=== PATIENT | male | born 1955 | race American Indian/Alaskan Native ===

== ENCOUNTER 2017-06-20 22:56 | Inpatient (IN) | payer OTHER ==
[2017-06-20] MEDS ORDERED: GLUCAGEN IV ONE (23:38)
[2017-06-20] MEDS ORDERED: NACL 0.9% 1000 ML 1,000 ML IV ONE (23:38)
[2017-06-20] MEDS ORDERED: ZOFRAN IV ONE (23:39)
--- NOTE | 2017-06-20 23:43 | Emergency Department Report ---
HPI - General Chief Complaint: Dyspnea/Respdistress Time Seen by Provider: 06/20/17 23:38 - HPI HPI: 61-year-old -[place] male presents to the ED with inability to swallow. Patient states 2 days ago he accidentally swallowed a large piece of chicken which got stuck in his throat. Since then patient has been unable to swallow anything, even saliva. Patient cannot drink water as it gets stuck in his throat and come back up, patient has been unable to eat for the past 2 days. Patient states his cough and nausea has been getting worse to the point where he vomits every hour or so. Patient has additional medical history of pancreatitis, high blood pressure and states that is compliant with medication. Patient also describes sharp pain in his throat, with no alleviating factors. ED Past Medical Hx - Past Medical History Previous Medical History?: Yes Hx Hypertension: Yes Additional medical history: pancreatitis - Family History Family history: hypertension - Social History Smoking Status: Never Smoker - Medications Home Medications: Home Medications Medication Instructions Recorded Confirmed Last Taken Type Amlodipine Besylate [Norvasc] 5 mg PO DAILY 06/21/17 06/21/17 Unknown History Ibuprofen [Motrin] 800 mg PO TIDWM 06/21/17 06/21/17 Unknown History Losartan [Cozaar] 50 mg PO QDAY 06/21/17 06/21/17 Unknown History Metoprolol [Lopressor TAB] 50 mg PO BID 06/21/17 06/21/17 Unknown History Pantoprazole [Protonix] 40 mg PO QDAC 06/21/17 06/21/17 Unknown History ED Review of Systems ROS: Stated complaint: VALERIO/THROAT SWELLING/POSS REACTION Other details as noted in HPI Comment: All other systems reviewed and negative Constitutional: malaise ENT: throat pain Cardiovascular: as per HPI Gastrointestinal: nausea, vomiting Physical Exam - Physical Exam Vital Signs: Vital Signs 06/20/17 23:04 Temperature 98.1 F Pulse Rate 110 H Respiratory 24 Rate Blood Pressure 162/101 O2 Sat by Pulse 98 Oximetry Physical Exam: - Physical Exam - General Limitations: No Limitations General appearance: alert, in no apparent distress, obese - Head Head exam: Present: atraumatic, normocephalic - Eye Eye exam: Present: normal appearance - ENT ENT exam: Present: mucous membranes moist - Neck Neck exam: Present: normal inspection - Respiratory Respiratory exam: Present: normal lung sounds bilaterally. Absent: respiratory distress - Cardiovascular Cardiovascular Exam: Present: normal rhythm, tachycardia. Absent: systolic murmur, diastolic murmur, rubs, gallop - GI/Abdominal GI/Abdominal exam: Present: soft, normal bowel sounds - Extremities Exam Extremities exam: Present: normal inspection - Back Exam Back exam: Present: normal inspection - Neurological Exam Neurological exam: Present: alert, oriented X3 - Psychiatric Psychiatric exam: normal affect and mood - Skin Skin exam: Present: warm, dry, intact, normal color. Absent: rash ED Course Vital Signs 06/20/17 23:04 Temperature 98.1 F Pulse Rate 110 H Respiratory 24 Rate Blood Pressure 162/101 O2 Sat by Pulse 98 Oximetry - Reevaluation(s) Reevaluation #1: 06/20/17 23:55 GI was consulted and i spoke with Dr. Jain, who stated he will come to ER, at 5 in the morning to remove the foreign body. 06/21/17 02:04 ED Medical Decision Making - Lab Data Result diagrams: 06/23/17 05:33 06/21/17 00:00 Critical care attestation.: If time is entered above; I have spent that time in minutes in the direct care of this critically ill patient, excluding procedure time. ED Disposition Clinical Impression: Foreign body in esophagus Qualifiers: Encounter type: initial encounter Qualified Code(s): T18.108A - Unspecified foreign body in esophagus causing other injury, initial encounter Disposition: OP ADMIT IP TO THIS HOSP Is pt being admited?: Yes Does the pt Need Aspirin: No Condition: Stable
[2017-06-20] MEDS ORDERED: MORPHINE IV ONE (23:55)
[2017-06-21 00:23] LABS: Basophils % (Auto) 0.2 % (0.0-1.8); Hemoglobin 15.6 gm/dl (11.8-15.2); Mean Corpuscular HGB Conc 33 % (32-34); Mean Corpuscular Hemoglobin 34 pg (28-32); Mean Corpuscular Volume 103 fl (84-94); Platelet Count 252 K/mm3 (140-440); Red Blood Count 4.55 M/mm3 (3.65-5.03); Red Cell Distribution Width 12.8 % (13.2-15.2); White Blood Count 19.4 K/mm3 (4.5-11.0)
[2017-06-21 00:31] LABS: Alanine Aminotransferase 49 units/L (7-56); Albumin 4.5 g/dL (3.9-5); Albumin/Globulin Ratio 0.9 %; Alkaline Phosphatase 79 units/L (35-129); Anion Gap 23 mmol/L; Blood Urea Nitrogen 15 mg/dL (9-20); Calcium 10.5 mg/dL (8.4-10.2); Carbon Dioxide 23 mmol/L (22-30); Chloride 92.4 mmol/L (98-107); Glucose 162 mg/dL (75-100); Potassium 4.7 mmol/L (3.6-5.0); Sodium 134 mmol/L (137-145); Total Protein 9.4 g/dL (6.3-8.2)
[2017-06-21 00:32] LABS: INR 0.9 (0.87-1.13)
[2017-06-21 00:33] LABS: Partial Thromboplastin Time 32.4 Sec. (24.2-36.6)
[2017-06-21] MEDS ORDERED: PEPCID IV ONE (01:06)
[2017-06-21] MEDS ORDERED: REGLAN IV ONE ×2 (01:06→02:03)
[2017-06-21] MEDS ORDERED: MORPHINE IV ONE ×2 (01:07→05:51)
[2017-06-21] MEDS ORDERED: GLUCAGEN IV ONE (01:11)
--- NOTE | 2017-06-21 01:26 | XRay Report ---
FINAL REPORT PROCEDURE: XR NECK SOFT TISSUE TECHNIQUE: Soft tissue neck radiographs, 2 views, including AP and lateral. CPT 25087 HISTORY: Bone in throat COMPARISON: No prior studies are available for comparison. FINDINGS: Bone mineralization: There is significant spur formation off the anterior aspect the the cervical vertebral bodies from the C3 through the C5 vertebral levels. Alignment: Normal. Soft tissues: Epiglottis and hypopharyngeal soft tissues normal. Foreign bodies: None. IMPRESSION: The airway is patent. No radiopaque foreign object is noted.
[2017-06-21] MEDS ORDERED: NACL 0.9% 1000 ML 1,000 ML IV ONE (01:56)
[2017-06-21] MEDS ORDERED: SUBLIMAZE IV ONE (04:51)
[2017-06-21] MEDS ORDERED: ZOFRAN IV ONE (05:52)
[2017-06-21] MEDS ORDERED: NACL 0.9% 1000 ML 1,000 ML ONE (07:25)
[2017-06-21] MEDS ORDERED: VERSED IV ONE (07:27)
[2017-06-21] MEDS ORDERED: SUBLIMAZE ONE (07:28)
[2017-06-21] MEDS ORDERED: ATROVENT IH ONE (07:59)
[2017-06-21] MEDS ORDERED: PROVENTIL IH ONE ×2 (07:59→09:46)
--- NOTE | 2017-06-21 08:21 | Gastroenterology Consultation ---
History of Present Illness - Reason for Consult Consult date: 06/21/17 Meat impaction Requesting physician: STORMY LIN - History of Present Illness The patient is a 61 year old man for whom consultation was requested for a meat impaction. The patient reports swallowing a large piece of chicken with a bone 2 days ago and has been unable to swallow much since. He has a history of dysphagia and heartburn for several years although this has not been evaluated or treated to his knowledge. He had colon surgery about 2 years ago for a non malignant polyp. he has had a large ventral hernia develop post surgery. 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 Patient has a history of asthma which has flared in the past few days as well. Past History Past Medical History: COPD, hypertension Past Surgical History: bowel surgery Social history: Lives alone. denies: smoking, alcohol abuse Family history: no significant family history Medications and Allergies Allergies Allergy/AdvReac Type Severity Reaction Status Date / Time No Known Allergies Allergy Verified 04/24/16 01:11 Home Medications Medication Instructions Recorded Confirmed Last Taken Type Amlodipine Besylate [Norvasc] 5 mg PO DAILY 06/21/17 06/21/17 Unknown History Ibuprofen [Motrin] 800 mg PO TIDWM 06/21/17 06/21/17 Unknown History Losartan [Cozaar] 50 mg PO QDAY 06/21/17 06/21/17 Unknown History Metoprolol [Lopressor TAB] 50 mg PO BID 06/21/17 06/21/17 Unknown History Pantoprazole [Protonix] 40 mg PO QDAC 06/21/17 06/21/17 Unknown History Active Meds: Active Medications Sodium Chloride (Nacl 0.9% 1000 Ml) 1,000 mls @ 125 mls/hr IV ONCE ONE Stop: 06/21/17 09:55 Last Admin: 06/21/17 03:00 Dose: 125 mls/hr Review of Systems - Review of Systems Constitutional: no weight loss, no fever, no chills Eyes: no change in vision Ears, Nose, Throat: difficulty swallowing, no decreased hearing, no painful swallowing Breasts: deferred Cardiovascular: no chest pain, no edema, no rapid/irregular heart beat Respiratory: cough, shortness of breath, wheezing, no home oxygen Gastrointestinal: heartburn, no abdominal pain, no nausea, no vomiting, no constipation, no BRBPR, no melena Rectal: pain Male Genitourinary: deferred Musculoskeletal: no gait dysfunction, no joint pain, no muscle pain Integumentary: no deferred, no rash, no pruritis, no jaundice Neurological: no head injury, no paralysis, no weakness Psychiatric: no anxiety Endocrine: no cold intolerance, no heat intolerance Hematologic/Lymphatic: no easy bruising, no easy bleeding Allergic/Immunologic: no wheezing Exam - Constitutional Vital Signs: Temp Pulse Resp BP Pulse Ox 98.1 F 122 H 18 158/108 99 06/20/17 23:04 06/21/17 06:15 06/21/17 06:15 06/21/17 06:15 06/21/17 06:15 General appearance: mild distress, obese - EENT Eyes: PERRL ENT: hearing intact, clear oral mucosa, edentulous - Neck Neck: supple, normal ROM, no masses or JVD - Respiratory Respiratory: bilateral: CTA, wheezing - Breasts Breasts: deferred - Cardiovascular Rhythm: regular Heart Sounds: Present: S1 & S2. Absent: gallop, rub Extremities: pulses intact, No edema, normal color, Full ROM - Gastrointestinal General gastrointestinal: Present: soft, non-tender, normal bowel sounds, other (Obese, large ventral hernia). Absent: hepatomegaly, splenomegaly, mass Rectal Exam: deferred - Genitourinary Male Genitourinary: deferred - Integumentary Integumentary: Present: clear, warm, dry - Neurologic Neurological: alert and oriented x3 - Psychiatric Psychiatric: appropriate mood/affect, intact judgment & insight, memory intact - Labs CBC & Chem 7: 06/21/17 00:00 06/21/17 00:00 Lab Results: Laboratory Results - last 24 hr 06/21/17 06/21/17 06/21/17 00:00 00:00 00:00 WBC 19.4 H RBC 4.55 Hgb 15.6 H Hct 47.0 H MCV 103 H MCH 34 H MCHC 33 RDW 12.8 L Plt Count 252 Lymph % (Auto) 5.2 L Bradley % (Auto) 11.5 H Eos % (Auto) 0.0 Baso % (Auto) 0.2 Lymph # 1.0 L Bradley # 2.2 H Eos # 0.0 Baso # 0.0 Seg Neutrophils % 83.1 H Seg Neutrophils # 16.1 H PT 12.6 INR 0.90 APTT 32.4 Sodium 134 L Potassium 4.7 Chloride 92.4 L Carbon Dioxide 23 Anion Gap 23 BUN 15 Creatinine 1.2 Estimated GFR > 60 BUN/Creatinine Ratio 12.50 Glucose 162 H Calcium 10.5 H Total Bilirubin 0.90 AST 32 ALT 49 Alkaline Phosphatase 79 Total Protein 9.4 H Albumin 4.5 Albumin/Globulin Ratio 0.9 Assessment and Plan - Patient Problems (1) COPD (chronic obstructive pulmonary disease) Current Visit: Yes Status: Acute Qualifiers: COPD type: C Chronic bronchitis type: C Emphysema type: E (2) Morbid obesity Current Visit: Yes Status: Acute (3) Hypertension Current Visit: Yes Status: Acute Qualifiers: Hypertension type: H (4) Foreign body in esophagus Current Visit: Yes Status: Acute Qualifiers: Encounter type: initial encounter Qualified Code(s): T18.108A - Unspecified foreign body in esophagus causing other injury, initial encounter Plan to address problem: Chicken and probable bone impaction of the esophagus. He is higher risk for endoscopy due to wheezing, obesity and foreign body and will need intubation to protect airway. Respiratory treatment ordered. Anesthesia to see shortly per my discussion.
--- NOTE | 2017-06-21 08:41 | Anesthesia Consultation ---
Anesthesia Consult and Med Hx Date of service: 06/21/17 - Airway Anesthetic Teeth Evaluation: Good ROM Head & Neck: Adequate Mental/Hyoid Distance: Adequate Mallampati Class: Class III Intubation Access Assessment: Possibly Difficult - Pre-Operative Health Status ASA Pre-Surgery Classification: ASA2 Proposed Anesthetic Plan: General - Pulmonary Hx Smoking: No Hx Respiratory Symptoms: Yes (difficulty breathing) - Cardiovascular System Hx Hypertension: Yes - Gastrointestinal Hx Gastroesophageal Reflux Disease: Yes - Other Systems Hx Obesity: Yes (overweight)
--- NOTE | 2017-06-21 08:42 | Anesthesia Day of Surgery ---
Anesthesia Day of Surgery - Day of Surgery Patient Examined: Yes Patient H&P Reviewed: Yes Patient is NPO: Yes
[2017-06-21] MEDS ORDERED: DILAUDID ONE (08:49)
[2017-06-21] MEDS ORDERED: DIPRIVAN 10 MG/ML IV ONE ×2 (08:49→09:14)
[2017-06-21] MEDS ORDERED: DULCOLAX PR PRN (09:22)
--- NOTE | 2017-06-21 09:23 | Operative Report ---
Operative Report Operative Report: Date of procedure: 06/21/2017 Procedure: Esophagogastroduodenoscopy Preprocedure diagnosis: Suspected foreign body in the esophagus, meat impaction with total dysphagia. Post procedure diagnosis: Edematous hypopharynx and epiglottis. No foreign body identified. Mild peptic stricture. Normal stomach and duodenum. Endoscopist: Dr. Jain Anesthesia: Gen. endotracheal anesthesia Medications: Propofol per anesthesia. Decadron 12 mg IV per anesthesia. Estimated blood loss: 0 After careful discussion of the nature and purpose of the procedure as well as details the technique risks benefits and alternatives consent was obtained. The procedure was performed in the operating room. The patient was placed under propofol and intubated in advance by anesthesia to protect the airway. The tip of the [employer] EQ 570 video scope was passed per orum under direct vision into the esophagus and advanced into the stomach and descending duodenum. No food impaction was present in the esophagus. The descending duodenum the duodenal bulb and pylorus were symmetrical and normal. The scope was withdrawn into the stomach and the stomach then gently insufflated with air. The antrum was normal. The stomach was further insufflated and the scope was then retroflexed and partially withdrawn. The cardia, fundus, and body of the stomach were within normal limits and easily distensible.The scope was then withdrawn in the forward position. The esophagogastric junction was at [42 cm] . Mild peptic stricture is present provided no resistance to passage of the scope. The esophageal body was normal throughout. There was edema in the hypopharyngeal area and epiglottis. Careful inspection of the area revealed no definite foreign body or bone. The procedure was was well tolerated and the patient was observed in recovery. Impressions: [Edematous hypopharynx without definite foreign body or bone. No food impaction present in the esophagus. The optic stricture at the esophagogastric junction. Normal stomach and duodenum.] Plan: Evaluation by the hospitalist to admit the patient for control of his asthma. Advance diet as tolerated. Outpatient dilation of the peptic stricture. Electronically signed: Shaun Jain MD
[2017-06-21] MEDS ORDERED: ZOFRAN IM PRN (09:24)
[2017-06-21] MEDS ORDERED: PROVENTIL IH PRN (09:25)
--- NOTE | 2017-06-21 09:32 | History and Physical Report ---
History of Present Illness Date of examination: 06/21/17 Date of admission: 06/21/2017 Chief complaint: unable to swallow History of present illness: Patient is a 61 years-old black -[place] male with past medical histroy of COPD, hypertension and pancreatitis who presents to the emergency department with inability to swallow. Patient reports swallowing a large piece of chicken with a bone three days ago and has been unable to swallow much since then. Patient states he has been unable to eat or drink for the past 3 days. Patient has a history of dysphagia and heartburn for several years although this has not been evaluated or treated to his knowledge. He has experienced some nausea but has not vomited. He endorses shortness of breath, but denies chest pain or dizziness. Past History Past Medical History: COPD, hypertension, other (Pancreatitis ) Past Surgical History: bowel surgery Social history: Lives alone. denies: smoking, alcohol abuse Family history: no significant family history Medications and Allergies Allergies Allergy/AdvReac Type Severity Reaction Status Date / Time No Known Allergies Allergy Verified 04/24/16 01:11 Home Medications Medication Instructions Recorded Confirmed Last Taken Type Amlodipine Besylate [Norvasc] 5 mg PO DAILY 06/21/17 06/21/17 Unknown History Ibuprofen [Motrin] 800 mg PO TIDWM 06/21/17 06/21/17 Unknown History Losartan [Cozaar] 50 mg PO QDAY 06/21/17 06/21/17 Unknown History Metoprolol [Lopressor TAB] 50 mg PO BID 06/21/17 06/21/17 Unknown History Pantoprazole [Protonix] 40 mg PO QDAC 06/21/17 06/21/17 Unknown History Active Meds: Active Medications Acetaminophen (Tylenol) 650 mg PO Q4H PRN PRN Reason: Pain MILD(1-3)/Fever >100.5/ALTAMIRANO Albuterol (Proventil) 2.5 mg IH Q4HR PRN PRN Reason: Shortness Of Breath Albuterol/Ipratropium (Duoneb *Not For Prn Use*) 1 ampul IH Q6HRT ROLAND Bisacodyl (Dulcolax) 10 mg [place] QDAY PRN PRN Reason: Constipation unrelieved by MOM Sodium Chloride (Nacl 0.9% 1000 Ml) 1,000 mls @ 125 mls/hr IV ONCE ONE Stop: 06/21/17 09:55 Last Admin: 06/21/17 03:00 Dose: 125 mls/hr Losartan Potassium (Cozaar) 50 mg PO QDAY [facility] Metoprolol Tartrate (Lopressor) 50 mg PO BID [facility] Miscellaneous Medication (Amlodipine Besylate [Norvasc]) 5 mg PO DAILY [facility] Morphine Sulfate (Morphine) 2 mg IV Q4H PRN PRN Reason: Pain, Moderate (7-10) Ondansetron HCl (Zofran) 4 mg IM Q4H PRN PRN Reason: Nausea And Vomiting Pantoprazole Sodium (Protonix) 40 mg IV DAILY [facility] Review of Systems Constitutional: poor appetite, no weight loss, no weight gain, no fever Ears, nose, mouth and throat: no ear pain, no ear discharge, no tinnitis, no decreased hearing, no nose pain, no nasal congestion Cardiovascular: shortness of breath, dyspnea on exertion, no chest pain, no orthopnea, no palpitations, no rapid/irregular heart beat, no syncope, no lightheadedness Respiratory: cough, shortness of breath, dyspnea on exertion, wheezing, no cough with sputum, no excessive sputum, no hemoptysis Gastrointestinal: no nausea, no vomiting, no diarrhea, no constipation Genitourinary Male: no hematuria, no flank pain, no discharge, no urinary frequency, no urinary hesitancy, no nocturia, no incontinence, no erectile dysfunction Rectal: no incontinence, no bleeding Musculoskeletal: no neck pain, no arm numbness/tingling, no low back pain, no shooting leg pain Integumentary: no pruritis, no redness, no sores Neurological: no paralysis, no weakness, no parathesias, no numbness, no seizures, no syncope Psychiatric: no memory loss, no change in sleep habits, no sleep disturbances, no insomnia, no hypersomnia Endocrine: no cold intolerance, no heat intolerance, no polyphagia, no excessive thirst, no polydipsia, no polyuria Hematologic/Lymphatic: no easy bruising, no easy bleeding Allergic/Immunologic: no urticaria, no allergic rhinitis Exam - Constitutional Vitals: Temp Pulse Resp BP Pulse Ox 98.1 F 123 H 25 H 163/85 99 06/20/17 23:04 06/21/17 08:30 06/21/17 08:30 06/21/17 08:30 06/21/17 08:30 General appearance: Present: mild distress - EENT Eyes: Present: PERRL ENT: hearing intact - Neck Neck: Present: supple - Respiratory Respiratory effort: normal Respiratory: bilateral: wheezing (mild stridor) - Cardiovascular Rhythm: regular Heart Sounds: Present: S1 & S2 - Extremities Extremities: no ischemia - Abdominal General gastrointestinal: Present: soft, non-tender Male genitourinary: Present: deferred - Rectal Rectal Exam: deferred - Integumentary Integumentary: Present: clear, warm, dry - Musculoskeletal Musculoskeletal: strength equal bilaterally - Psychiatric Psychiatric: appropriate mood/affect - Neurologic Neurologic: CNII-XII intact - Allied Health Allied health notes reviewed: nursing Results - Labs CBC & Chem 7: 06/21/17 00:00 06/21/17 00:00 Labs: Laboratory Last Values WBC 19.4 K/mm3 (4.5-11.0) H 06/21/17 00:00 RBC 4.55 M/mm3 (3.65-5.03) 06/21/17 00:00 Hgb 15.6 gm/dl (11.8-15.2) H 06/21/17 00:00 Hct 47.0 % (35.5-45.6) H 06/21/17 00:00 MCV 103 fl (84-94) H 06/21/17 00:00 MCH 34 pg (28-32) H 06/21/17 00:00 MCHC 33 % (32-34) 06/21/17 00:00 RDW 12.8 % (13.2-15.2) L 06/21/17 00:00 Plt Count 252 K/mm3 (140-440) 06/21/17 00:00 Lymph % (Auto) 5.2 % (13.4-35.0) L 06/21/17 00:00 Swift % (Auto) 11.5 % (0.0-7.3) H 06/21/17 00:00 Eos % (Auto) 0.0 % (0.0-4.3) 06/21/17 00:00 Baso % (Auto) 0.2 % (0.0-1.8) 06/21/17 00:00 Lymph # 1.0 K/mm3 (1.2-5.4) L 06/21/17 00:00 Swift # 2.2 K/mm3 (0.0-0.8) H 06/21/17 00:00 Eos # 0.0 K/mm3 (0.0-0.4) 06/21/17 00:00 Baso # 0.0 K/mm3 (0.0-0.1) 06/21/17 00:00 Seg Neutrophils % 83.1 % (40.0-70.0) H 06/21/17 00:00 Seg Neutrophils # 16.1 K/mm3 (1.8-7.7) H 06/21/17 00:00 PT 12.6 Sec. (12.2-14.9) 06/21/17 00:00 INR 0.90 (0.87-1.13) 06/21/17 00:00 APTT 32.4 Sec. (24.2-36.6) 06/21/17 00:00 Sodium 134 mmol/L (137-145) L 06/21/17 00:00 Potassium 4.7 mmol/L (3.6-5.0) 06/21/17 00:00 Chloride 92.4 mmol/L (98-107) L 06/21/17 00:00 Carbon Dioxide 23 mmol/L (22-30) 06/21/17 00:00 Anion Gap 23 mmol/L 06/21/17 00:00 BUN 15 mg/dL (9-20) 06/21/17 00:00 Creatinine 1.2 mg/dL (0.8-1.5) 06/21/17 00:00 Estimated GFR > 60 ml/min 06/21/17 00:00 BUN/Creatinine Ratio 12.50 % 06/21/17 00:00 Glucose 162 mg/dL (75-100) H 06/21/17 00:00 Calcium 10.5 mg/dL (8.4-10.2) H 06/21/17 00:00 Total Bilirubin 0.90 mg/dL (0.1-1.2) 06/21/17 00:00 AST 32 units/L (5-40) 06/21/17 00:00 ALT 49 units/L (7-56) 06/21/17 00:00 Alkaline Phosphatase 79 units/L (35-129) 06/21/17 00:00 Total Protein 9.4 g/dL (6.3-8.2) H 06/21/17 00:00 Albumin 4.5 g/dL (3.9-5) 06/21/17 00:00 Albumin/Globulin Ratio 0.9 % 06/21/17 00:00 - Imaging and Cardiology Chest x-ray: image reviewed (The airway is patent. No radiopaque foreign object is noted.) Assessment and Plan Assessment and plan: Foreign body in throat Endoscopy revealed revealed no definite foreign body or bone, but shows edema to Hypopharyngeal and Epiglottis Started on IV steroid Oxygen supplement Supportive care COPD exacerbation Started on Duoneb every 6 hours Started on IV steroids Solumedrol 40mg every 6 hours Aggressive nebulizers Oxygen supplement Supportive care Hypertension IV Hydralazine 10 mg as necassary for now Hold PO medication, We will resume home PO antihypertensive medications when patient swallowing improved Closely monitor blood pressure DVT Propylaxis Lovenox Advance Directives: Yes (Full code) VTE prophylaxis?: Chemical Contraindication Mechanical VTE Prophylaxis: Treatment Not Indicated Plan of care discussed with patient/family: Yes
[2017-06-21] MEDS ORDERED: DECADRON ONE (09:45)
[2017-06-21] MEDS ORDERED: XYLOCAINE MPF 2% ONE (09:45)
[2017-06-21] MEDS ORDERED: QUELICIN ONE (09:45)
[2017-06-21] MEDS ORDERED: NORMODYNE IV PRN (10:02)
[2017-06-21] MEDS ORDERED: NORMODYNE IV ONE (10:12)
[2017-06-21] MEDS ORDERED: S2 RACEPINEPHRINE 2.25% IH ONE ×4 (10:45→19:10)
[2017-06-21] MEDS ORDERED: NACL 0.9% 1000 ML 1,000 ML IV SCH (11:00)
--- NOTE | 2017-06-21 11:16 | XRay Report ---
PORTABLE CHEST: Respiratory distress. An AP portable view of the chest demonstrates a normal cardiac contour considering the limits of this technique. The lungs are clear with no evidence of infiltrate, fluid or failure. IMPRESSION: Normal portable chest.
--- NOTE | 2017-06-21 11:35 | Post Anesthesia Evaluation ---
- Post Anesthesia Evaluation Patient Participated: Yes Airway Patent: Yes Stable Respiratory Function: Yes Nausea/Vomiting: No Temp > 96.8F: Yes Pain Manageable: Yes Adequeate Hydration: Yes Anesthesia Complications: No
[2017-06-21] MEDS: PROTONIX IV SCH (12:15)
[2017-06-21] MEDS: LOVENOX SUB-Q SCH (12:33)
[2017-06-21] MEDS: COZAAR PO SCH (12:35)
[2017-06-21] MEDS: NORVASC PO SCH (12:35)
[2017-06-21] MEDS: LOPRESSOR PO SCH ×2 (12:35→21:54)
[2017-06-21] MEDS ORDERED: APRESOLINE IV PRN (12:39)
[2017-06-21] MEDS: APRESOLINE IV PRN ×2 (13:02→21:52)
[2017-06-21] MEDS: DUONEB *Not for PRN Use IH SCH ×2 (13:26→21:32)
[2017-06-21] MEDS: MORPHINE IV PRN ×2 (18:16→21:51)
[2017-06-22] MEDS: DUONEB *Not for PRN Use IH SCH ×4 (02:58→20:12)
[2017-06-22] MEDS: APRESOLINE IV PRN ×3 (05:09→22:15)
[2017-06-22] MEDS: MORPHINE IV PRN ×3 (05:10→14:40)
--- NOTE | 2017-06-22 09:11 | Progress Note ---
Assessment and Plan Assessment and plan: Patient is a 61 years-old black -[place] male with past medical histroy of COPD, hypertension and pancreatitis who presents to the emergency department with inability to swallow. Patient reports swallowing a large piece of chicken with a bone three days ago and has been unable to swallow much since then. Patient states he has been unable to eat or drink for the past 3 days. Patient has a history of dysphagia and heartburn for several years although this has not been evaluated or treated to his knowledge. He has experienced some nausea but has not vomited. He endorses shortness of breath, but denies chest pain or dizziness. Foreign body in throat Endoscopy revealed revealed no definite foreign body or bone, but shows edema to Hypopharyngeal and Epiglottis Wean IV steroids as tolerated Oxygen supplement Supportive care Clear liquid and advance as tolerated Follow with GI ouptatient for dilation of the peptic stricture COPD exacerbation Started on Duoneb every 6 hours Taper to 40 BID IV Aggressive nebulizers Oxygen supplement Supportive care Hypertension WITH Tachycardia IV Hydralazine 10 mg as necassary for now We will resume home PO antihypertensive medications Closely monitor blood pressure DVT Propylaxis Lovenox Advance Directives: Yes (Full code) VTE prophylaxis?: Chemical Contraindication Mechanical VTE Prophylaxis: Treatment Not Indicated Plan of care discussed with patient/family: History Interval history: Patient seen and examined this morning going for GI procedure. Hospitalist Physical - Physical exam Narrative exam: VITAL SIGNS: Reviewed. GENERAL: The patient appeared well nourished and normally developed. Vital signs as documented. HEAD: No signs of head trauma. EYES: Pupils are equal. Extraocular motions intact. EARS: Hearing grossly intact. MOUTH: Oropharynx is normal. NECK: No adenopathy, no JVD. CHEST: Chest with crackles breath sounds bilaterally. CARDIAC: Regular rate and rhythm. S1 and S2, without murmurs, gallops, or rubs. VASCULAR: No Edema. Peripheral pulses normal and equal in all extremities. ABDOMEN: Soft, without detectable tenderness. No sign of distention. No rebound or guarding, and no masses palpated. Bowel Sounds normal. MUSCULOSKELETAL: Good range of motion of all major joints. Extremities without clubbing, cyanosis or edema. NEUROLOGIC EXAM: Alert and oriented x 3. Hoarse intonation, No focal sensory or strength deficits. Follows commands. PSYCHIATRIC: Mood normal. SKIN: No rash or lesions. - Constitutional Vitals: Temp Pulse Resp BP Pulse Ox 99.6 F 114 H 20 158/90 91 06/22/17 05:15 06/22/17 05:15 06/22/17 05:15 06/22/17 05:15 06/22/17 05:15 General appearance: Present: mild distress Results - Labs CBC & Chem 7: 06/23/17 05:33 06/21/17 00:00 Labs: Laboratory Last Values WBC 19.4 K/mm3 (4.5-11.0) H 06/21/17 00:00 RBC 4.55 M/mm3 (3.65-5.03) 06/21/17 00:00 Hgb 15.6 gm/dl (11.8-15.2) H 06/21/17 00:00 Hct 47.0 % (35.5-45.6) H 06/21/17 00:00 MCV 103 fl (84-94) H 06/21/17 00:00 MCH 34 pg (28-32) H 06/21/17 00:00 MCHC 33 % (32-34) 06/21/17 00:00 RDW 12.8 % (13.2-15.2) L 06/21/17 00:00 Plt Count 252 K/mm3 (140-440) 06/21/17 00:00 Lymph % (Auto) 5.2 % (13.4-35.0) L 06/21/17 00:00 [place] % (Auto) 11.5 % (0.0-7.3) H 06/21/17 00:00 Eos % (Auto) 0.0 % (0.0-4.3) 06/21/17 00:00 Baso % (Auto) 0.2 % (0.0-1.8) 06/21/17 00:00 Lymph # 1.0 K/mm3 (1.2-5.4) L 06/21/17 00:00 [place] # 2.2 K/mm3 (0.0-0.8) H 06/21/17 00:00 Eos # 0.0 K/mm3 (0.0-0.4) 06/21/17 00:00 Baso # 0.0 K/mm3 (0.0-0.1) 06/21/17 00:00 Seg Neutrophils % 83.1 % (40.0-70.0) H 06/21/17 00:00 Seg Neutrophils # 16.1 K/mm3 (1.8-7.7) H 06/21/17 00:00 PT 12.6 Sec. (12.2-14.9) 06/21/17 00:00 INR 0.90 (0.87-1.13) 06/21/17 00:00 APTT 32.4 Sec. (24.2-36.6) 06/21/17 00:00 Sodium 134 mmol/L (137-145) L 06/21/17 00:00 Potassium 4.7 mmol/L (3.6-5.0) 06/21/17 00:00 Chloride 92.4 mmol/L (98-107) L 06/21/17 00:00 Carbon Dioxide 23 mmol/L (22-30) 06/21/17 00:00 Anion Gap 23 mmol/L 06/21/17 00:00 BUN 15 mg/dL (9-20) 06/21/17 00:00 Creatinine 1.2 mg/dL (0.8-1.5) 06/21/17 00:00 Estimated GFR > 60 ml/min 06/21/17 00:00 BUN/Creatinine Ratio 12.50 % 06/21/17 00:00 Glucose 162 mg/dL (75-100) H 06/21/17 00:00 Calcium 10.5 mg/dL (8.4-10.2) H 06/21/17 00:00 Total Bilirubin 0.90 mg/dL (0.1-1.2) 06/21/17 00:00 AST 32 units/L (5-40) 06/21/17 00:00 ALT 49 units/L (7-56) 06/21/17 00:00 Alkaline Phosphatase 79 units/L (35-129) 06/21/17 00:00 Total Protein 9.4 g/dL (6.3-8.2) H 06/21/17 00:00 Albumin 4.5 g/dL (3.9-5) 06/21/17 00:00 Albumin/Globulin Ratio 0.9 % 06/21/17 00:00 - Imaging and Cardiology Imaging and Cardiology: xray of neck. negative.
[2017-06-22] MEDS: LEVAQUIN 750MG/150ML 750 MG/150 ML BAG IV SCH (09:57)
[2017-06-22] MEDS: LOVENOX SUB-Q SCH (09:58)
[2017-06-22] MEDS: PROTONIX IV SCH (11:40)
--- NOTE | 2017-06-22 11:42 | Gastroenterology Progress Note ---
<STEPHANY MIRAMONTES - Last Filed: 06/22/17 11:49> Assessment and Plan 1.foreign body in the esophagus 2. COPD- defer to hospitalist for treatment/management -S/P EGD yesterday that revealed edematous hypopharynx and epiglottis with mild peptic stricture but no foreign body -will order clear liquid diet, advance as tolerated -continue PPI and supportive care -pt will need an EGD with dilation as an outpatient within 1 month -no further GI recommendations at this time, pt is okay to be d/c from GI standpoint with a f/u appt in 2 weeks to schedule outpatient EGD -will sign off, please re-consult if needed or if pt has difficulty advancing diet Subjective Date of service: 06/22/17 Principal diagnosis: foreign body in the esophagus Interval history: Patient sitting in the bed. No acute distress. Seems agitated, states he is just thirsty. Denies pain or N/V. Objective - Constitutional Vitals: Temp Pulse Resp BP Pulse Ox 98.3 F 110 H 20 189/14 96 06/22/17 09:34 06/22/17 10:07 06/22/17 10:07 06/22/17 10:07 06/22/17 09:34 General appearance: no acute distress, obese - EENT Eyes: PERRL, EOM intact ENT: hearing intact - Neck Neck: supple, normal ROM - Respiratory Respiratory: bilateral: rhonchi (anterior) - Cardiovascular Rhythm: other (tachycardia) Heart Sounds: Present: S1 & S2 - Extremities Extremities: No edema - Gastrointestinal General gastrointestinal: Present: soft, non-tender, non-distended, normal bowel sounds, other (ventral hernia, midline scar) - Integumentary Integumentary: Present: warm - Neurologic Neurological: alert and oriented x3 - Labs CBC & Chem 7: 06/21/17 00:00 06/21/17 00:00 <AMIE IGNACIO - Last Filed: 06/22/17 16:23> Assessment and Plan Patient seen and examined. Agree with note by Stephany Miramontes. Recommend speech eval, and diet per recommendations. Consider ENT evaluation. Will need outpatient EGD as above. Will sign off, please call back as needed or with questions. Objective - Constitutional Vitals: Temp Pulse Resp BP Pulse Ox 98.6 F 115 H 20 155/90 95 06/22/17 12:45 06/22/17 13:42 06/22/17 13:42 06/22/17 12:45 06/22/17 14:02 - Labs CBC & Chem 7: 06/21/17 00:00 06/21/17 00:00
[2017-06-22] MEDS: NORVASC PO SCH (15:14)
[2017-06-22] MEDS: LOPRESSOR PO SCH ×2 (15:14→22:30)
[2017-06-22] MEDS: COZAAR PO SCH (15:14)
[2017-06-23] MEDS: MORPHINE IV PRN (02:06)
[2017-06-23] MEDS: DUONEB *Not for PRN Use IH SCH ×4 (02:34→21:00)
[2017-06-23 06:07] LABS: Hematocrit 44.1 % (35.5-45.6); Hemoglobin 14.6 gm/dl (11.8-15.2); Mean Corpuscular HGB Conc 33 % (32-34); Mean Corpuscular Hemoglobin 34 pg (28-32); Mean Corpuscular Volume 104 fl (84-94); Platelet Count 225 K/mm3 (140-440); Red Blood Count 4.26 M/mm3 (3.65-5.03); Red Cell Distribution Width 12.8 % (13.2-15.2); White Blood Count 13.2 K/mm3 (4.5-11.0)
--- NOTE | 2017-06-23 11:06 | Fluoroscopy Report ---
MODIFIED BARIUM SWALLOW History: dysphagia. Findings: Video radiography was provided by the radiologist for speech therapy to assess the swallowing mechanism. Please refer to the formal report by speech therapy. Impression: Successful modified barium swallow.
[2017-06-23] MEDS: COZAAR PO SCH (11:23)
[2017-06-23] MEDS: PROTONIX PO SCH (11:24)
[2017-06-23] MEDS: LOPRESSOR PO SCH (11:24)
[2017-06-23] MEDS: NORVASC PO SCH (11:24)
[2017-06-23] MEDS: LEVAQUIN 750MG/150ML 750 MG/150 ML BAG IV SCH (11:33)
[2017-06-23] MEDS: LOVENOX SUB-Q SCH (11:34)
[2017-06-23] MEDS: APRESOLINE IV PRN (11:38)
[2017-06-23] MEDS: D5NS 1,000 ML IV SCH (17:46)
--- NOTE | 2017-06-23 18:27 | Progress Note ---
Assessment and Plan Assessment and plan: Patient is a 61 years-old black -[place] male with past medical histroy of COPD, hypertension and pancreatitis who presents to the emergency department with inability to swallow. Patient reports swallowing a large piece of chicken with a bone three days ago and has been unable to swallow much since then. Patient states he has been unable to eat or drink for the past 3 days. Patient has a history of dysphagia and heartburn for several years although this has not been evaluated or treated to his knowledge. He has experienced some nausea but has not vomited. He endorses shortness of breath, but denies chest pain or dizziness. Foreign body in throat Endoscopy revealed revealed no definite foreign body or bone, but shows edema to Hypopharyngeal and Epiglottis Increase IV steroids to help with inflammation. Oxygen supplement Supportive care Unable to tolerate clear liquids. Discussed with GI will revisit. Follow with GI ouptatient for dilation of the peptic stricture COPD exacerbation Started on Duoneb every 6 hours Taper to 40 BID IV Aggressive nebulizers Oxygen supplement Supportive care Hypertension WITH Tachycardia IV Hydralazine 10 mg as necassary for now We will resume home PO antihypertensive medications Closely monitor blood pressure Hypercalcemia Likely secondary to dehydration. We'll recheck. Leukocytosis Trending down we'll monitor evidence of infectious process at this time. DVT Propylaxis Lovenox Advance Directives: Yes (Full code) VTE prophylaxis?: Chemical Contraindication Mechanical VTE Prophylaxis: Treatment Not Indicated Plan of care discussed with patient History Interval history: Patient seen and examined this morning still with difficulty tolerating by mouth Nothing by mouth again after modified barium swallow shows aspiration risk. Hospitalist Physical - Physical exam Narrative exam: VITAL SIGNS: Reviewed. GENERAL: The patient appeared well nourished and normally developed. Vital signs as documented. HEAD: No signs of head trauma. EYES: Pupils are equal. Extraocular motions intact. EARS: Hearing grossly intact. MOUTH: Oropharynx is normal. NECK: No adenopathy, no JVD. CHEST: Chest with crackles breath sounds bilaterally. CARDIAC: Regular rate and rhythm. S1 and S2, without murmurs, gallops, or rubs. VASCULAR: No Edema. Peripheral pulses normal and equal in all extremities. ABDOMEN: Soft, without detectable tenderness. No sign of distention. No rebound or guarding, and no masses palpated. Bowel Sounds normal. MUSCULOSKELETAL: Good range of motion of all major joints. Extremities without clubbing, cyanosis or edema. NEUROLOGIC EXAM: Alert and oriented x 3. Hoarse intonation, No focal sensory or strength deficits. Follows commands. PSYCHIATRIC: Mood normal. SKIN: No rash or lesions. - Constitutional Vitals: Temp Pulse Resp BP Pulse Ox 98.1 F 117 H 18 159/110 98 06/23/17 06:19 06/23/17 13:51 06/23/17 13:51 06/23/17 11:38 06/23/17 10:00 General appearance: Present: mild distress Results - Labs CBC & Chem 7: 06/23/17 05:33 06/21/17 00:00 Labs: Laboratory Last Values WBC 13.2 K/mm3 (4.5-11.0) H 06/23/17 05:33 RBC 4.26 M/mm3 (3.65-5.03) 06/23/17 05:33 Hgb 14.6 gm/dl (11.8-15.2) 06/23/17 05:33 Hct 44.1 % (35.5-45.6) 06/23/17 05:33 MCV 104 fl (84-94) H 06/23/17 05:33 MCH 34 pg (28-32) H 06/23/17 05:33 MCHC 33 % (32-34) 06/23/17 05:33 RDW 12.8 % (13.2-15.2) L 06/23/17 05:33 Plt Count 225 K/mm3 (140-440) 06/23/17 05:33 Lymph % (Auto) 5.2 % (13.4-35.0) L 06/21/17 00:00 [place] % (Auto) 11.5 % (0.0-7.3) H 06/21/17 00:00 Eos % (Auto) 0.0 % (0.0-4.3) 06/21/17 00:00 Baso % (Auto) 0.2 % (0.0-1.8) 06/21/17 00:00 Lymph # 1.0 K/mm3 (1.2-5.4) L 06/21/17 00:00 [place] # 2.2 K/mm3 (0.0-0.8) H 06/21/17 00:00 Eos # 0.0 K/mm3 (0.0-0.4) 06/21/17 00:00 Baso # 0.0 K/mm3 (0.0-0.1) 06/21/17 00:00 Seg Neutrophils % 83.1 % (40.0-70.0) H 06/21/17 00:00 Seg Neutrophils # 16.1 K/mm3 (1.8-7.7) H 06/21/17 00:00 PT 12.6 Sec. (12.2-14.9) 06/21/17 00:00 INR 0.90 (0.87-1.13) 06/21/17 00:00 APTT 32.4 Sec. (24.2-36.6) 06/21/17 00:00 Sodium 134 mmol/L (137-145) L 06/21/17 00:00 Potassium 4.7 mmol/L (3.6-5.0) 06/21/17 00:00 Chloride 92.4 mmol/L (98-107) L 06/21/17 00:00 Carbon Dioxide 23 mmol/L (22-30) 06/21/17 00:00 Anion Gap 23 mmol/L 06/21/17 00:00 BUN 15 mg/dL (9-20) 06/21/17 00:00 Creatinine 1.2 mg/dL (0.8-1.5) 06/21/17 00:00 Estimated GFR > 60 ml/min 06/21/17 00:00 BUN/Creatinine Ratio 12.50 % 06/21/17 00:00 Glucose 162 mg/dL (75-100) H 06/21/17 00:00 Calcium 10.5 mg/dL (8.4-10.2) H 06/21/17 00:00 Total Bilirubin 0.90 mg/dL (0.1-1.2) 06/21/17 00:00 AST 32 units/L (5-40) 06/21/17 00:00 ALT 49 units/L (7-56) 06/21/17 00:00 Alkaline Phosphatase 79 units/L (35-129) 06/21/17 00:00 Total Protein 9.4 g/dL (6.3-8.2) H 06/21/17 00:00 Albumin 4.5 g/dL (3.9-5) 06/21/17 00:00 Albumin/Globulin Ratio 0.9 % 06/21/17 00:00
[2017-06-24] MEDS: APRESOLINE IV PRN ×2 (00:16→10:58)
[2017-06-24] MEDS: DUONEB *Not for PRN Use IH SCH ×4 (02:03→19:47)
[2017-06-24] MEDS: D5NS 1,000 ML IV SCH ×2 (02:43→11:11)
[2017-06-24 06:25] LABS: Hematocrit 45.4 % (35.5-45.6); Mean Corpuscular HGB Conc 33 % (32-34); Mean Corpuscular Hemoglobin 34 pg (28-32); Mean Corpuscular Volume 104 fl (84-94); Platelet Count 234 K/mm3 (140-440); Red Blood Count 4.39 M/mm3 (3.65-5.03); Red Cell Distribution Width 13.1 % (13.2-15.2)
[2017-06-24 06:42] LABS: Anion Gap 18 mmol/L; Blood Urea Nitrogen 34 mg/dL (9-20); Calcium 9.5 mg/dL (8.4-10.2); Carbon Dioxide 24 mmol/L (22-30); Chloride 108.3 mmol/L (98-107); Glucose 284 mg/dL (75-100); Potassium 4.2 mmol/L (3.6-5.0); Sodium 146 mmol/L (137-145)
[2017-06-24] MEDS: LOPRESSOR PO SCH ×2 (10:40→22:29)
[2017-06-24] MEDS: COZAAR PO SCH (10:40)
[2017-06-24] MEDS: PROTONIX PO SCH (10:40)
[2017-06-24] MEDS: NORVASC PO SCH (10:40)
--- NOTE | 2017-06-24 10:40 | Gastroenterology Progress Note ---
<ROSEMARY MIRAMONTES - Last Filed: 06/24/17 10:41> Assessment and Plan 1.foreign body in the esophagus 2. COPD- defer to hospitalist for treatment/management -S/P EGD 06/21/17 that revealed edematous hypopharynx and epiglottis with mild peptic stricture but no foreign body -pt tolerating clear liquid diet today w/o difficulty, dysphagia, or odynophagia -will advance diet to a soft diet -continue PPI and supportive care -pt will need an EGD with dilation as an outpatient within 1 month -if pt tolerates advancement in diet with dysphagia, he will be okay to d/c from GI standpoint with a f/u appt in 2 weeks to schedule outpatient EGD -will sign off, please re-consult if needed Subjective Date of service: 06/24/17 Principal diagnosis: foreign body in the esophagus Interval history: Patient sitting on the side of the bed. No acute distress. Family at bedside. Pt drinking water with dysphagia or odynophagia. Denies abd pain or N/V. Objective - Constitutional Vitals: Temp Pulse Resp BP Pulse Ox 98.8 F 113 H 20 199/113 92 06/24/17 10:05 06/24/17 10:05 06/24/17 10:05 06/24/17 10:05 06/24/17 10:05 General appearance: no acute distress, obese - EENT Eyes: PERRL, EOM intact ENT: hearing intact - Neck Neck: supple, normal ROM - Respiratory Respiratory: bilateral: rhonchi - Cardiovascular Rhythm: other (tachycardia) Heart Sounds: Present: S1 & S2 - Gastrointestinal General gastrointestinal: Present: soft, non-tender, non-distended, normal bowel sounds, other (ventral hernia, midline scar) - Integumentary Integumentary: Present: warm, dry - Neurologic Neurological: alert and oriented x3 - Labs CBC & Chem 7: 06/24/17 06:03 06/24/17 06:03 Labs: Laboratory Results - last 24 hr 06/24/17 06/24/17 06:03 06:03 WBC 12.0 H RBC 4.39 Hgb 15.0 Hct 45.4 MCV 104 H MCH 34 H MCHC 33 RDW 13.1 L Plt Count 234 Sodium 146 H D Potassium 4.2 Chloride 108.3 H Carbon Dioxide 24 Anion Gap 18 BUN 34 H Creatinine 1.1 Estimated GFR > 60 BUN/Creatinine Ratio 30.90 Glucose 284 H Calcium 9.5 <ANDIE LYNCH - Last Filed: 06/24/17 12:11> Assessment and Plan - Patient Problems (1) COPD (chronic obstructive pulmonary disease) Current Visit: Yes Status: Acute Qualifiers: COPD type: C Chronic bronchitis type: C Emphysema type: E (2) Morbid obesity Current Visit: Yes Status: Acute (3) Hypertension Current Visit: Yes Status: Acute Qualifiers: Hypertension type: H (4) Foreign body in esophagus Current Visit: Yes Status: Acute Qualifiers: Encounter type: initial encounter Qualified Code(s): T18.108A - Unspecified foreign body in esophagus causing other injury, initial encounter Plan to address problem: The patient was seen and examined and care plan discussed. Dysphagia has now resolved. I strongly suspect prolonged sx were due to edema from having something there for 2 days before he came to ER. He is swallowing liquids well and requesting solids. Objective - Constitutional Vitals: Temp Pulse Resp BP Pulse Ox 98.8 F 113 H 20 199/113 92 06/24/17 10:05 06/24/17 10:05 06/24/17 10:05 06/24/17 10:05 06/24/17 10:05 - Labs CBC & Chem 7: 06/24/17 06:03 06/24/17 06:03 Labs: Laboratory Results - last 24 hr 06/24/17 06/24/17 06:03 06:03 WBC 12.0 H RBC 4.39 Hgb 15.0 Hct 45.4 MCV 104 H MCH 34 H MCHC 33 RDW 13.1 L Plt Count 234 Sodium 146 H D Potassium 4.2 Chloride 108.3 H Carbon Dioxide 24 Anion Gap 18 BUN 34 H Creatinine 1.1 Estimated GFR > 60 BUN/Creatinine Ratio 30.90 Glucose 284 H Calcium 9.5
[2017-06-24] MEDS: LOVENOX SUB-Q SCH (11:00)
[2017-06-24] MEDS: LEVAQUIN 750MG/150ML 750 MG/150 ML BAG IV SCH (11:01)
[2017-06-24] MEDS: NOVOLOG SUB-Q SCH ×2 (14:14→19:00)
[2017-06-24] MEDS: LOPRESSOR IV SCH ×2 (14:15→19:26)
--- NOTE | 2017-06-24 14:56 | Progress Note ---
Assessment and Plan Assessment and plan: Patient is a 61 years-old black -[place] male with past medical histroy of COPD, hypertension and pancreatitis who presents to the emergency department with inability to swallow. Patient reports swallowing a large piece of chicken with a bone three days ago and has been unable to swallow much since then. Patient states he has been unable to eat or drink for the past 3 days. Patient has a history of dysphagia and heartburn for several years although this has not been evaluated or treated to his knowledge. He has experienced some nausea but has not vomited. He endorses shortness of breath, but denies chest pain or dizziness. Foreign body in throat Endoscopy revealed revealed no definite foreign body or bone, but shows edema to Hypopharyngeal and Epiglottis continue IV steroids to help with inflammation. taper from this evening. will need prolonged taper on discharge. Oxygen supplement Supportive care Unable to tolerate clear liquids. Discussed with GI will revisit. Follow with GI ouptatient for dilation of the peptic stricture COPD exacerbation Started on Duoneb every 6 hours Taper to 40 BID IV Aggressive nebulizers Oxygen supplement Supportive care Hypertension WITH Tachycardia IV Hydralazine 10 mg as necassary for now We will resume home PO antihypertensive medications Closely monitor blood pressure Hypercalcemia Likely secondary to dehydration. We'll recheck. Leukocytosis now secondary to steriods Trending down we'll monitor evidence of infectious process at this time. Hyperglycemia * secondary to steroids and D5. will discontinue the later. DVT Propylaxis Lovenox Advance Directives: Yes (Full code) VTE prophylaxis?: Chemical Contraindication Mechanical VTE Prophylaxis: Treatment Not Indicated Plan of care discussed with patient Anticipate discharge in AM. History Interval history: Patient seen and examined this morning reports some improvement. now able to tolerate fluids. Hospitalist Physical - Physical exam Narrative exam: VITAL SIGNS: Reviewed. GENERAL: The patient appeared well nourished and normally developed. Vital signs as documented. HEAD: No signs of head trauma. EYES: Pupils are equal. Extraocular motions intact. EARS: Hearing grossly intact. MOUTH: Oropharynx is normal. NECK: No adenopathy, no JVD. CHEST: Chest with crackles breath sounds bilaterally. CARDIAC: Regular rate and rhythm. S1 and S2, without murmurs, gallops, or rubs. VASCULAR: No Edema. Peripheral pulses normal and equal in all extremities. ABDOMEN: Soft, without detectable tenderness. No sign of distention. No rebound or guarding, and no masses palpated. Bowel Sounds normal. MUSCULOSKELETAL: Good range of motion of all major joints. Extremities without clubbing, cyanosis or edema. NEUROLOGIC EXAM: Alert and oriented x 3. Hoarse intonation, No focal sensory or strength deficits. Follows commands. PSYCHIATRIC: Mood normal. SKIN: No rash or lesions. - Constitutional Vitals: Temp Pulse Resp BP Pulse Ox 98.8 F 113 H 20 199/113 92 06/24/17 10:05 06/24/17 10:05 06/24/17 10:05 06/24/17 10:05 06/24/17 10:05 General appearance: Present: mild distress Results - Labs CBC & Chem 7: 06/24/17 06:03 06/24/17 06:03 Labs: Laboratory Last Values WBC 12.0 K/mm3 (4.5-11.0) H 06/24/17 06:03 RBC 4.39 M/mm3 (3.65-5.03) 06/24/17 06:03 Hgb 15.0 gm/dl (11.8-15.2) 06/24/17 06:03 Hct 45.4 % (35.5-45.6) 06/24/17 06:03 MCV 104 fl (84-94) H 06/24/17 06:03 MCH 34 pg (28-32) H 06/24/17 06:03 MCHC 33 % (32-34) 06/24/17 06:03 RDW 13.1 % (13.2-15.2) L 06/24/17 06:03 Plt Count 234 K/mm3 (140-440) 06/24/17 06:03 Lymph % (Auto) 5.2 % (13.4-35.0) L 06/21/17 00:00 [place] % (Auto) 11.5 % (0.0-7.3) H 06/21/17 00:00 Eos % (Auto) 0.0 % (0.0-4.3) 06/21/17 00:00 Baso % (Auto) 0.2 % (0.0-1.8) 06/21/17 00:00 Lymph # 1.0 K/mm3 (1.2-5.4) L 06/21/17 00:00 [place] # 2.2 K/mm3 (0.0-0.8) H 06/21/17 00:00 Eos # 0.0 K/mm3 (0.0-0.4) 06/21/17 00:00 Baso # 0.0 K/mm3 (0.0-0.1) 06/21/17 00:00 Seg Neutrophils % 83.1 % (40.0-70.0) H 06/21/17 00:00 Seg Neutrophils # 16.1 K/mm3 (1.8-7.7) H 06/21/17 00:00 PT 12.6 Sec. (12.2-14.9) 06/21/17 00:00 INR 0.90 (0.87-1.13) 06/21/17 00:00 APTT 32.4 Sec. (24.2-36.6) 06/21/17 00:00 Sodium 146 mmol/L (137-145) H D 06/24/17 06:03 Potassium 4.2 mmol/L (3.6-5.0) 06/24/17 06:03 Chloride 108.3 mmol/L (98-107) H 06/24/17 06:03 Carbon Dioxide 24 mmol/L (22-30) 06/24/17 06:03 Anion Gap 18 mmol/L 06/24/17 06:03 BUN 34 mg/dL (9-20) H 06/24/17 06:03 Creatinine 1.1 mg/dL (0.8-1.5) 06/24/17 06:03 Estimated GFR > 60 ml/min 06/24/17 06:03 BUN/Creatinine Ratio 30.90 % 06/24/17 06:03 Glucose 284 mg/dL (75-100) H 06/24/17 06:03 POC Glucose 306 (70-105) H 06/24/17 12:17 Calcium 9.5 mg/dL (8.4-10.2) 06/24/17 06:03 Total Bilirubin 0.90 mg/dL (0.1-1.2) 06/21/17 00:00 AST 32 units/L (5-40) 06/21/17 00:00 ALT 49 units/L (7-56) 06/21/17 00:00 Alkaline Phosphatase 79 units/L (35-129) 06/21/17 00:00 Total Protein 9.4 g/dL (6.3-8.2) H 06/21/17 00:00 Albumin 4.5 g/dL (3.9-5) 06/21/17 00:00 Albumin/Globulin Ratio 0.9 % 06/21/17 00:00
[2017-06-24] MEDS: TYLENOL PO PRN (22:20)
[2017-06-25] MEDS: MORPHINE IV PRN ×3 (02:01→22:36)
[2017-06-25] MEDS: DUONEB *Not for PRN Use IH SCH ×4 (02:49→19:58)
[2017-06-25] MEDS: NOVOLOG SUB-Q SCH ×4 (03:22→18:53)
[2017-06-25] MEDS: APRESOLINE IV PRN ×2 (03:37→15:00)
[2017-06-25] MEDS: LOPRESSOR IV SCH ×2 (03:47→06:22)
[2017-06-25 05:02] LABS: Hematocrit 42.1 % (35.5-45.6); Hemoglobin 13.6 gm/dl (11.8-15.2); Mean Corpuscular HGB Conc 32 % (32-34); Mean Corpuscular Hemoglobin 33 pg (28-32); Mean Corpuscular Volume 104 fl (84-94); Platelet Count 250 K/mm3 (140-440); Red Blood Count 4.07 M/mm3 (3.65-5.03); Red Cell Distribution Width 12.8 % (13.2-15.2); White Blood Count 14.2 K/mm3 (4.5-11.0)
[2017-06-25 05:35] LABS: Anion Gap 19 mmol/L; Blood Urea Nitrogen 29 mg/dL (9-20); Calcium 9.2 mg/dL (8.4-10.2); Carbon Dioxide 25 mmol/L (22-30); Glucose 249 mg/dL (75-100); Potassium 4.2 mmol/L (3.6-5.0); Sodium 140 mmol/L (137-145)
--- NOTE | 2017-06-25 09:25 | Discharge Summary ---
Providers - Providers Date of Admission: 06/21/17 09:53 Attending physician: AVNI MARQUEZ MD 06/22/17 13:12 Speech Therapy Evaluation and Treat [CONS] Routine Reason For Exam: ASPIRATION Primary care physician: BELL STAFF Hospitalization Reason for admission: esophageal swelling Condition: Stable Hospital course: Patient is a 61 years-old black -[place] male with past medical histroy of COPD, hypertension and pancreatitis who presents to the emergency department with inability to swallow. Patient reports swallowing a large piece of chicken with a bone three days ago and has been unable to swallow much since then. Patient states he has been unable to eat or drink for the past 3 days. Patient has a history of dysphagia and heartburn for several years although this has not been evaluated or treated to his knowledge. He has experienced some nausea but has not vomited. He endorses shortness of breath, but denies chest pain or dizziness. Hypopharyngeal and epiglottic edema Endoscopy revealed revealed no definite foreign body or bone, but shows edema to Hypopharyngeal and Epiglottis Patient was started on IV steroids to help the inflammation. Which improved initial modified barium swallow showed significant aspiration. After some treatments with IV steroids this improved to patient tolerated nectar thick but not GI soft diet. At this point to the patient to remain on his diet for at least 5 days until thyroid improvement prior to advancing. He is to follow with his pharmacy services director for dilation of the peptic stricture. Peptic stricture OUTPATIENT FOLLOW UP WITH GI discussed with patient and he verbalized understanding COPD exacerbation Patient was treated with Duoneb every 6 hours Aggressive nebulizers Oxygen supplement With good improvement chest x-ray was normal antibiotics was discontinued. Hypertension WITH Tachycardia This resolved after patient was transitioned back to oral medications. Hypercalcemia Likely secondary to dehydration. Resolved Leukocytosis now secondary to steriods Trending down we'll monitor evidence of infectious process at this time. Diabetes Mellitus * A1C 6.8. Patient advised on diet and will be started on metformin. Also recommended and educated on diabetes millitus managment. Disposition: [id number] HOME UNDER HOME [facility] Time spent for discharge: 35 mins Core Measure Documentation - Palliative Care Palliative Care/ Comfort Measures: Not Applicable - Core Measures Any of the following diagnoses?: none - VTE Discharge Requirements Deep Vein Thrombosis/Pulmonary Embolism Present on Admission: No Exam - Physical Exam Narrative exam: VITAL SIGNS: Reviewed. GENERAL: The patient appeared well nourished and normally developed. Vital signs as documented. HEAD: No signs of head trauma. EYES: Pupils are equal. Extraocular motions intact. EARS: Hearing grossly intact. MOUTH: Oropharynx is normal. NECK: No adenopathy, no JVD. CHEST: Chest with coarse breath sounds bilaterally. CARDIAC: Regular rate and rhythm. S1 and S2, without murmurs, gallops, or rubs. VASCULAR: No Edema. Peripheral pulses normal and equal in all extremities. ABDOMEN: Soft, without detectable tenderness. No sign of distention. No rebound or guarding, and no masses palpated. Bowel Sounds normal. MUSCULOSKELETAL: Good range of motion of all major joints. Extremities without clubbing, cyanosis or edema. NEUROLOGIC EXAM: Alert and oriented x 3. No focal sensory or strength deficits. Follows commands. PSYCHIATRIC: Mood normal. SKIN: No rash or lesions. - Constitutional Vitals: Temp Pulse Resp BP Pulse Ox 99.4 F 104 H 20 183/115 96 06/25/17 07:26 06/25/17 07:26 06/25/17 07:26 06/25/17 07:06/25/17 07:26 Plan Activity: advance as tolerated, fall precautions Diet: diabetic, thickened liquids (advance after 3-5 days as tolerated) Special Instructions: record daily BP diary, record blood sugar diary, home health RN Follow up with: PRIMARY CARE, [Primary Care Provider] - 3-5 Days RADHIKA SUTHERLAND MD [Staff Physician] - 7 Days Prescriptions: Azithromycin [Zithromax TAB] 500 mg PO QDAY #3 tablet Loratadine [Claritin] 10 mg PO QDAY #7 tablet metFORMIN [Glucophage] 500 mg PO BID #60 tablet predniSONE [Deltasone] 40 mg PO QDAY #7 tablet
--- NOTE | 2017-06-25 10:45 | Fluoroscopy Report ---
Modified barium swallow: Dysphasia. Images were obtained in the lateral position with speech therapy giving different consistencies of opaque material. Penetration identified on most swallows. During rapid swallowing of liquids aspiration occurred. The epiglottis is not currently thickened. Impression: Aspiration.
[2017-06-25] MEDS: PROTONIX PO SCH (11:22)
[2017-06-25] MEDS: COZAAR PO SCH (11:22)
[2017-06-25] MEDS: NORVASC PO SCH (11:22)
[2017-06-25] MEDS: LEVAQUIN 750MG/150ML 750 MG/150 ML BAG IV SCH (11:23)
[2017-06-25] MEDS: LOVENOX SUB-Q SCH (11:23)
--- NOTE | 2017-06-25 14:18 | Progress Note ---
Assessment and Plan Assessment and plan: Patient is a 61 years-old black -[place] male with past medical histroy of COPD, hypertension and pancreatitis who presents to the emergency department with inability to swallow. Patient reports swallowing a large piece of chicken with a bone three days ago and has been unable to swallow much since then. Patient states he has been unable to eat or drink for the past 3 days. Patient has a history of dysphagia and heartburn for several years although this has not been evaluated or treated to his knowledge. He has experienced some nausea but has not vomited. He endorses shortness of breath, but denies chest pain or dizziness. Foreign body in throat Endoscopy revealed revealed no definite foreign body or bone, but shows edema to Hypopharyngeal and Epiglottis Patient was started on IV steroids to help the inflammation. Today with tapering it down to by mouth. will need prolonged taper on discharge. Wean off oxygen. Supportive care Unable to tolerate clear liquids. Discussed with GI will revisit. Follow with GI ouptatient for dilation of the peptic stricture COPD exacerbation Started on Duoneb every 6 hours Comforted by mouth. Aggressive nebulizers Oxygen supplement Supportive care We'll discontinue antibiotics and no further evidence of infectious process. Chest x-ray is normal. Hypertension WITH Tachycardia IV Hydralazine 10 mg as necassary for now Discussed with nursing staff and management about utilization of the blood pressure medications for adequate control and to notify me if still uncontrolled. Closely monitor blood pressure We'll resume home by mouth medications aspirin and the patient has not tolerated liquids. Hypercalcemia Likely secondary to dehydration. Resolved Leukocytosis now secondary to steriods Trending down we'll monitor evidence of infectious process at this time. Hyperglycemia * secondary to steroids and D5. will discontinue the later. DVT Propylaxis Lovenox Advance Directives: Yes (Full code) VTE prophylaxis?: Chemical Contraindication Mechanical VTE Prophylaxis: Treatment Not Indicated Plan of care discussed with patient Anticipate discharge in AM. patient continues to require inpatient hospitalization due to poor by mouth intake. Considering improvement and intake of A thick liquid will anticipate discharge in a.m. as patient improves. History Interval history: Patient seen and examined this morning continues to improve and he is tolerating the next of thick fluids but not the GI soft. Hospitalist Physical - Physical exam Narrative exam: VITAL SIGNS: Reviewed. GENERAL: The patient appeared well nourished and normally developed. Vital signs as documented. HEAD: No signs of head trauma. EYES: Pupils are equal. Extraocular motions intact. EARS: Hearing grossly intact. MOUTH: Oropharynx is normal. NECK: No adenopathy, no JVD. CHEST: Chest with diminished breath sounds bilaterally. CARDIAC: Regular rate and rhythm. S1 and S2, without murmurs, gallops, or rubs. VASCULAR: No Edema. Peripheral pulses normal and equal in all extremities. ABDOMEN: Soft, without detectable tenderness. No sign of distention. No rebound or guarding, and no masses palpated. Bowel Sounds normal. MUSCULOSKELETAL: Good range of motion of all major joints. Extremities without clubbing, cyanosis or edema. NEUROLOGIC EXAM: Alert and oriented x 3. No focal sensory or strength deficits. Follows commands. PSYCHIATRIC: Mood normal. SKIN: No rash or lesions. - Constitutional Vitals: Temp Pulse Resp BP Pulse Ox 99.4 F 116 H 20 183/115 97 06/25/17 07:26 06/25/17 13:37 06/25/17 13:37 06/25/17 07:26 06/25/17 08:15 General appearance: Present: mild distress Results - Labs CBC & Chem 7: 06/25/17 04:26 06/25/17 04:19 Labs: Laboratory Last Values WBC 14.2 K/mm3 (4.5-11.0) H 06/25/17 04:26 RBC 4.07 M/mm3 (3.65-5.03) 06/25/17 04:26 Hgb 13.6 gm/dl (11.8-15.2) 06/25/17 04:26 Hct 42.1 % (35.5-45.6) 06/25/17 04:26 MCV 104 fl (84-94) H 06/25/17 04:26 MCH 33 pg (28-32) H 06/25/17 04:26 MCHC 32 % (32-34) 06/25/17 04:26 RDW 12.8 % (13.2-15.2) L 06/25/17 04:26 Plt Count 250 K/mm3 (140-440) 06/25/17 04:26 Lymph % (Auto) 5.2 % (13.4-35.0) L 06/21/17 00:00 Carlton % (Auto) 11.5 % (0.0-7.3) H 06/21/17 00:00 Eos % (Auto) 0.0 % (0.0-4.3) 06/21/17 00:00 Baso % (Auto) 0.2 % (0.0-1.8) 06/21/17 00:00 Lymph # 1.0 K/mm3 (1.2-5.4) L 06/21/17 00:00 Carlton # 2.2 K/mm3 (0.0-0.8) H 06/21/17 00:00 Eos # 0.0 K/mm3 (0.0-0.4) 06/21/17 00:00 Baso # 0.0 K/mm3 (0.0-0.1) 06/21/17 00:00 Seg Neutrophils % 83.1 % (40.0-70.0) H 06/21/17 00:00 Seg Neutrophils # 16.1 K/mm3 (1.8-7.7) H 06/21/17 00:00 PT 12.6 Sec. (12.2-14.9) 06/21/17 00:00 INR 0.90 (0.87-1.13) 06/21/17 00:00 APTT 32.4 Sec. (24.2-36.6) 06/21/17 00:00 Sodium 140 mmol/L (137-145) 06/25/17 04:19 Potassium 4.2 mmol/L (3.6-5.0) 06/25/17 04:19 Chloride 100.0 mmol/L (98-107) 06/25/17 04:19 Carbon Dioxide 25 mmol/L (22-30) 06/25/17 04:19 Anion Gap 19 mmol/L 06/25/17 04:19 BUN 29 mg/dL (9-20) H 06/25/17 04:19 Creatinine 1.0 mg/dL (0.8-1.5) 06/25/17 04:19 Estimated GFR > 60 ml/min 06/25/17 04:19 BUN/Creatinine Ratio 29.00 % 06/25/17 04:19 Glucose 249 mg/dL (75-100) H 06/25/17 04:19 POC Glucose 248 (70-105) H 06/25/17 11:45 Calcium 9.2 mg/dL (8.4-10.2) 06/25/17 04:19 Total Bilirubin 0.90 mg/dL (0.1-1.2) 06/21/17 00:00 AST 32 units/L (5-40) 06/21/17 00:00 ALT 49 units/L (7-56) 06/21/17 00:00 Alkaline Phosphatase 79 units/L (35-129) 06/21/17 00:00 Total Protein 9.4 g/dL (6.3-8.2) H 06/21/17 00:00 Albumin 4.5 g/dL (3.9-5) 06/21/17 00:00 Albumin/Globulin Ratio 0.9 % 06/21/17 00:00
[2017-06-25] MEDS: DELTASONE PO SCH (18:53)
[2017-06-25] MEDS: TYLENOL PO PRN (22:36)
[2017-06-25] MEDS: LOPRESSOR PO SCH (22:37)
[2017-06-26] MEDS: NOVOLOG SUB-Q SCH ×5 (00:06→23:03)
[2017-06-26] MEDS: DUONEB *Not for PRN Use IH SCH ×4 (07:52→20:05)
--- NOTE | 2017-06-26 09:57 | Progress Note ---
Assessment and Plan Assessment and plan: Patient is a 61 years-old black -[place] male with past medical histroy of COPD, hypertension and pancreatitis who presents to the emergency department with inability to swallow. Patient reports swallowing a large piece of chicken with a bone three days ago and has been unable to swallow much since then. Patient states he has been unable to eat or drink for the past 3 days. Patient has a history of dysphagia and heartburn for several years although this has not been evaluated or treated to his knowledge. He has experienced some nausea but has not vomited. He endorses shortness of breath, but denies chest pain or dizziness. Foreign body in throat Endoscopy revealed revealed no definite foreign body or bone, but shows edema to Hypopharyngeal and Epiglottis Patient was started on IV steroids to help the inflammation. Continue with by mouth steroids. will need prolonged taper on discharge. Wean off oxygen. Supportive care Unable to tolerate clear liquids. Discussed with GI will revisit. Follow with GI ouptatient for dilation of the peptic stricture COPD exacerbation Started on Duoneb every 6 hours Comforted by mouth. Aggressive nebulizers Oxygen supplement Supportive care We'll discontinue antibiotics and no further evidence of infectious process. Chest x-ray is normal. Hypertension WITH Tachycardia IV Hydralazine 10 mg as necassary for now Discussed with nursing staff and management about utilization of the blood pressure medications for adequate control and to notify me if still uncontrolled. Closely monitor blood pressure We'll resume home by mouth medications aspirin and the patient has not tolerated liquids. Hypercalcemia Likely secondary to dehydration. Resolved Leukocytosis now secondary to steriods Trending down we'll monitor evidence of infectious process at this time. Hyperglycemia * We'll check hemoglobin A1c. secondary to steroids and D5. will discontinue * DVT Propylaxis Lovenox Advance Directives: Yes (Full code) VTE prophylaxis?: Chemical Contraindication Mechanical VTE Prophylaxis: Treatment Not Indicated Plan of care discussed with patient Patient concerned about I believe it's a cough up secretion. Also concerned about oxygen saturation. We'll monitor for additional 24 hours. patient continues to require inpatient hospitalization due to poor by mouth intake. Considering improvement and intake of A thick liquid will anticipate discharge in a.m. as patient improves. History Interval history: Patient seen and examined this morning continues to improve and he is tolerating the next of thick fluids, but still concerned about his ability to cough up phlegm. Still requiring to suction himself out. Hospitalist Physical - Physical exam Narrative exam: VITAL SIGNS: Reviewed. GENERAL: The patient appeared well nourished and normally developed. Vital signs as documented. HEAD: No signs of head trauma. EYES: Pupils are equal. Extraocular motions intact. EARS: Hearing grossly intact. MOUTH: Oropharynx is normal. NECK: No adenopathy, no JVD. CHEST: Chest with coarse breath sounds bilaterally. CARDIAC: Regular rate and rhythm. S1 and S2, without murmurs, gallops, or rubs. VASCULAR: No Edema. Peripheral pulses normal and equal in all extremities. ABDOMEN: Soft, without detectable tenderness. No sign of distention. No rebound or guarding, and no masses palpated. Bowel Sounds normal. MUSCULOSKELETAL: Good range of motion of all major joints. Extremities without clubbing, cyanosis or edema. NEUROLOGIC EXAM: Alert and oriented x 3. No focal sensory or strength deficits. Follows commands. PSYCHIATRIC: Mood normal. SKIN: No rash or lesions. - Constitutional Vitals: Temp Pulse Resp BP Pulse Ox 98.3 F 95 H 20 159/92 97 06/26/17 08:06 06/26/17 08:06 06/26/17 08:06 06/26/17 08:06 06/26/17 08:06 General appearance: Present: mild distress Results - Labs CBC & Chem 7: 06/25/17 04:26 06/25/17 04:19 Labs: Laboratory Last Values WBC 14.2 K/mm3 (4.5-11.0) H 06/25/17 04:26 RBC 4.07 M/mm3 (3.65-5.03) 06/25/17 04:26 Hgb 13.6 gm/dl (11.8-15.2) 06/25/17 04:26 Hct 42.1 % (35.5-45.6) 06/25/17 04:26 MCV 104 fl (84-94) H 06/25/17 04:26 MCH 33 pg (28-32) H 06/25/17 04:26 MCHC 32 % (32-34) 06/25/17 04:26 RDW 12.8 % (13.2-15.2) L 06/25/17 04:26 Plt Count 250 K/mm3 (140-440) 06/25/17 04:26 Lymph % (Auto) 5.2 % (13.4-35.0) L 06/21/17 00:00 Reynolds % (Auto) 11.5 % (0.0-7.3) H 06/21/17 00:00 Eos % (Auto) 0.0 % (0.0-4.3) 06/21/17 00:00 Baso % (Auto) 0.2 % (0.0-1.8) 06/21/17 00:00 Lymph # 1.0 K/mm3 (1.2-5.4) L 06/21/17 00:00 Reynolds # 2.2 K/mm3 (0.0-0.8) H 06/21/17 00:00 Eos # 0.0 K/mm3 (0.0-0.4) 06/21/17 00:00 Baso # 0.0 K/mm3 (0.0-0.1) 06/21/17 00:00 Seg Neutrophils % 83.1 % (40.0-70.0) H 06/21/17 00:00 Seg Neutrophils # 16.1 K/mm3 (1.8-7.7) H 06/21/17 00:00 PT 12.6 Sec. (12.2-14.9) 06/21/17 00:00 INR 0.90 (0.87-1.13) 06/21/17 00:00 APTT 32.4 Sec. (24.2-36.6) 06/21/17 00:00 Sodium 140 mmol/L (137-145) 06/25/17 04:19 Potassium 4.2 mmol/L (3.6-5.0) 06/25/17 04:19 Chloride 100.0 mmol/L (98-107) 06/25/17 04:19 Carbon Dioxide 25 mmol/L (22-30) 06/25/17 04:19 Anion Gap 19 mmol/L 06/25/17 04:19 BUN 29 mg/dL (9-20) H 06/25/17 04:19 Creatinine 1.0 mg/dL (0.8-1.5) 06/25/17 04:19 Estimated GFR > 60 ml/min 06/25/17 04:19 BUN/Creatinine Ratio 29.00 % 06/25/17 04:19 Glucose 249 mg/dL (75-100) H 06/25/17 04:19 POC Glucose 277 (70-105) H 06/25/17 15:50 Calcium 9.2 mg/dL (8.4-10.2) 06/25/17 04:19 Total Bilirubin 0.90 mg/dL (0.1-1.2) 06/21/17 00:00 AST 32 units/L (5-40) 06/21/17 00:00 ALT 49 units/L (7-56) 06/21/17 00:00 Alkaline Phosphatase 79 units/L (35-129) 06/21/17 00:00 Total Protein 9.4 g/dL (6.3-8.2) H 06/21/17 00:00 Albumin 4.5 g/dL (3.9-5) 06/21/17 00:00 Albumin/Globulin Ratio 0.9 % 06/21/17 00:00
[2017-06-26] MEDS: NORVASC PO SCH (11:12)
[2017-06-26] MEDS: COZAAR PO SCH (11:12)
[2017-06-26] MEDS: LOPRESSOR PO SCH ×2 (11:13→22:29)
[2017-06-26] MEDS: DELTASONE PO SCH (11:13)
[2017-06-26] MEDS: PROTONIX PO SCH (11:14)
[2017-06-26] MEDS: LOVENOX SUB-Q SCH (11:14)
[2017-06-26] MEDS: ZITHROMAX PO SCH (18:10)
[2017-06-26] MEDS: CLARITIN PO SCH (18:10)
[2017-06-27] MEDS: DUONEB *Not for PRN Use IH SCH ×3 (02:49→13:59)
[2017-06-27] MEDS: TYLENOL PO PRN (04:07)
[2017-06-27] MEDS: NOVOLOG SUB-Q SCH (07:34)
[2017-06-27 08:04] VITALS: BP 147/89
[2017-06-27] MEDS: ZITHROMAX PO SCH (10:36)
[2017-06-27] MEDS: COZAAR PO SCH (10:36)
[2017-06-27] MEDS: CLARITIN PO SCH (10:37)
[2017-06-27] MEDS: DELTASONE PO SCH (10:37)
[2017-06-27] MEDS: PROTONIX PO SCH (10:38)
[2017-06-27] MEDS: NORVASC PO SCH (10:38)
[2017-06-27] MEDS: LOPRESSOR PO SCH (10:38)
[2017-06-27] MEDS: LOVENOX SUB-Q SCH (10:39)
== END 2017-06-27 12:00 | disposition home health service (06) | DRG 155 ==
LOC: ED 22:56 → 4A 06-21 09:53 → 3A 06-24 16:58
PROVIDERS: ADMIT Internal Medicine; ATTEND Internal Medicine
PROC: 0DJ08ZZ Inspection of Upper Intestinal Tract, Via Natural or Artificial Opening Endoscopic (ICD-10-PCS; principal; 2017-06-21)
DX: J38.4 Edema of larynx (principal); J44.1 Chronic obstructive pulmonary disease with (acute) exacerbation; E66.01 Morbid (severe) obesity due to excess calories; I10 Essential (primary) hypertension; Z60.2 Problems related to living alone; E83.52 Hypercalcemia; T38.0X5A Adverse effect of glucocorticoids and synthetic analogues, initial encounter; E11.65 Type 2 diabetes mellitus with hyperglycemia; Z79.899 Other long term (current) drug therapy; Z68.35 Body mass index [BMI] 35.0-35.9, adult; Y92.89 Other specified places as the place of occurrence of the external cause
CPT/HCPCS: 36415; 70360; 71010; 74230; 80048; 80053; 82962; 83036; 85025; 85027; 85610; 85730; 94640; 94760; C9113; J0330; J0360; J1100; J1170; J1610; J1650; J1815; J1956; J2250; J2270; J2405; J2704; J2765; J2920; J2930; J3010; J7030; J7042; J7512

== ENCOUNTER 2017-07-12 07:34 | Outpatient (CLI) | payer OTHER ==
[2017-07-12] MEDS ORDERED: PROVENTIL IH ONE (07:49)
== END 2017-07-12 07:35 | disposition home or self-care (01) ==
LOC: PF 07:34
PROVIDERS: ATTEND Internal Medicine
DX: I10 Essential (primary) hypertension (principal); M19.90 Unspecified osteoarthritis, unspecified site; H53.9 Unspecified visual disturbance; M54.9 Dorsalgia, unspecified; R06.02 Shortness of breath; R06.2 Wheezing; R06.00 Dyspnea, unspecified
CPT/HCPCS: 94060; 94640; 94729

== ENCOUNTER 2021-05-15 06:12 | Emergency (ER) | payer MEDICARE, OTHER ==
[2021-05-15 07:59] LABS: Hematocrit 35.8 % (35.5-45.6); Hemoglobin 12.6 gm/dl (11.8-15.2); Mean Corpuscular HGB Conc 35 % (32-34); Mean Corpuscular Volume 108 fl (84-94); Platelet Count 167 K/mm3 (140-440); Red Blood Count 3.32 M/mm3 (3.65-5.03); Red Cell Distribution Width 12.8 % (13.2-15.2)
[2021-05-15 08:20] LABS: Alanine Aminotransferase 68 units/L (7-56); Albumin 4.9 g/dL (3.9-5); BUN/Creatinine Ratio 10; Blood Urea Nitrogen 10 mg/dL (9-20); Calcium 10.6 mg/dL (8.4-10.2); Hemolysis Index 1
[2021-05-15 11:02] LABS: Platelet Estimate Consistent w Auto; RBC Morphology Normal; Total Cells Counted 100
[2021-05-15] MEDS ORDERED: MORPHINE 4 MG/1 ML INJ IV ONE (11:57)
[2021-05-15] MEDS ORDERED: ONDANSETRON 4 MG/2 ML INJ IV ONE (11:57)
[2021-05-15] MEDS ORDERED: SODIUM CHLORIDE 0.9% 1000 ML 1,000 ML IV ONE (11:57)
--- NOTE | 2021-05-15 12:01 | Emergency Department Report ---
HPI - General Chief Complaint: Abdominal Pain Time Seen by Provider: 05/15/21 11:49 - HPI HPI: This is a 65-year-old -[place] male who presents to the emergency department from home with a complaint of a 1 week history of abdominal pain, as well as some intermittent nausea with vomiting. The patient says that he has not taken anything for his symptoms prior to presentation. He has a history of COPD (not O2 dependent), diabetes, hypertension and previous pancreatitis. The patient also admits to having an abdominal hernia and has a surgical history of a partial bowel/colon resection, although the patient cannot tell me the reason this was required. He denies any fever, back pain, chest pain, rectal bleeding, dysuria, diarrhea or constipation. No recent travel or sick contacts at home. Currently has abdominal pain is 7 out of 10 in intensity. No known aggravating or alleviating factors. ED Past Medical Hx - Past Medical History Previous Medical History?: Yes Hx Hypertension: Yes Hx Diabetes: Yes Hx COPD: Yes Additional medical history: pancreatitis, back pain - Surgical History Past Surgical History?: Yes Additional Surgical History: abdominal sx - Social History Smoking Status: Never Smoker - Medications Home Medications: Home Medications Medication Instructions Recorded Confirmed Last Taken Type Amlodipine Besylate [Norvasc] 5 mg PO DAILY 06/21/17 06/21/17 Unknown History Ibuprofen [Motrin 800 MG tab] 800 mg PO TIDWM 06/21/17 06/21/17 Unknown History Losartan [Cozaar] 50 mg PO QDAY 06/21/17 06/21/17 Unknown History Metoprolol [Lopressor TAB] 50 mg PO BID 06/21/17 06/21/17 Unknown History Pantoprazole [Protonix TAB] 40 mg PO QDAC 06/21/17 06/21/17 Unknown History Azithromycin [Zithromax TAB] 500 mg PO QDAY #3 tablet 06/27/17 Unknown Rx Loratadine (Nf) [Claritin (Nf)] 10 mg PO QDAY #7 tablet 06/27/17 Unknown Rx metFORMIN [Glucophage] 500 mg PO BID #60 tablet 06/27/17 Unknown Rx predniSONE [Deltasone] 40 mg PO QDAY #7 tablet 06/27/17 Unknown Rx Dicyclomine [Bentyl] 10 mg PO QID #11 ml 05/15/21 Unknown Rx Ondansetron [Zofran Odt] 4 mg PO Q8HR PRN #15 tab.purnimadis 05/15/21 Unknown Rx ED Review of Systems ROS: Stated complaint: NAUSEA, VOMITING, ABD PAIN Other details as noted in HPI Comment: All other systems reviewed and negative Constitutional: denies: chills, fever Eyes: denies: eye pain, vision change ENT: denies: ear pain, throat pain Respiratory: denies: cough, wheezing Cardiovascular: denies: chest pain, palpitations Gastrointestinal: abdominal pain, nausea, vomiting Genitourinary: denies: dysuria, discharge Musculoskeletal: denies: back pain, arthralgia Skin: denies: rash, lesions Neurological: denies: headache, weakness Physical Exam - Physical Exam Vital Signs: Vital Signs 05/15/21 06:49 Temperature 98.2 F Pulse Rate 86 Respiratory 21 Rate Blood Pressure 154/85 [Right] O2 Sat by Pulse 99 Oximetry Physical Exam: GENERAL: The patient is well-developed well-nourished. HENT: Normocephalic. Atraumatic. Patient has moist mucous membranes. EYES: Extraocular motions are intact. NECK: Supple. Trachea is midline. CHEST/LUNGS: Clear to auscultation. No tachypnea or accessory muscle use. There is no respiratory distress noted. HEART/CARDIOVASCULAR: Regular. There is no tachycardia. There is no murmur. ABDOMEN: Abdomen is soft, nontender. Patient has normal bowel sounds. Obese habitus. SKIN: Skin is warm and dry. NEURO: The patient is awake, alert, and oriented. The patient is cooperative. The patient has no focal neurologic deficits. Normal speech. MUSCULOSKELETAL: There is no tenderness or deformity. There is no limitation range of motion. ED Course Vital Signs 05/15/21 06:49 Temperature 98.2 F Pulse Rate 86 Respiratory 21 Rate Blood Pressure 154/85 [Right] O2 Sat by Pulse 99 Oximetry ED Medical Decision Making - Lab Data Result diagrams: 05/15/21 07:12 05/15/21 14:26 Lab Results 05/15/21 05/15/21 05/15/21 Range/Units 07:12 07:12 07:12 WBC 4.2 L (4.5-11.0) K/mm3 RBC 3.32 L (3.65-5.03) M/mm3 Hgb 12.6 (11.8-15.2) gm/dl Hct 35.8 (35.5-45.6) % MCV 108 H (84-94) fl MCH 38 H (28-32) pg MCHC 35 H (32-34) % RDW 12.8 L (13.2-15.2) % Plt Count 167 (140-440) K/mm3 [place] % (Auto) Magnet Maker Add Manual Diff Complete Total Counted 100 Seg Neuts % (Manual) 69.0 (40.0-70.0) % Lymphocytes % (Manual) 17.0 (13.4-35.0) % Monocytes % (Manual) 13.0 H (0.0-7.3) % Myelocytes % 1.0 % Nucleated RBC % Not Reportable Seg Neutrophils # Man 2.9 (1.8-7.7) K/mm3 Band Neutrophils # 0.0 K/mm3 Lymphocytes # (Manual) 0.7 L (1.2-5.4) K/mm3 Abs React Lymphs (Man) 0.0 K/mm3 Monocytes # (Manual) 0.5 (0.0-0.8) K/mm3 Eosinophils # (Manual) 0.0 (0.0-0.4) K/mm3 Basophils # (Manual) 0.0 (0.0-0.1) K/mm3 Metamyelocytes # 0.0 K/mm3 Myelocytes # 0.0 K/mm3 Promyelocytes # 0.0 K/mm3 Blast Cells # 0.0 K/mm3 WBC Morphology Not Reportable Hypersegmented Neuts Not Reportable Hyposegmented Neuts Not Reportable Hypogranular Neuts Not Reportable Smudge Cells Not Reportable Toxic Granulation Not Reportable Toxic Vacuolation Not Reportable Dohle Bodies Not Reportable Pelger-Huet Anomaly Not Reportable Sylvain Rods Not Reportable Platelet Estimate Consistent w auto Clumped Platelets Not Reportable Plt Clumps, EDTA Not Reportable Large Platelets Not Reportable Giant Platelets Not Reportable Platelet Satelliting Not Reportable Plt Morphology Comment Not Reportable RBC Morphology Normal Dimorphic RBCs Not Reportable Polychromasia Not Reportable Hypochromasia Not Reportable Poikilocytosis Not Reportable Anisocytosis Not Reportable Microcytosis Not Reportable Macrocytosis Not Reportable Spherocytes Not Reportable Pappenheimer Bodies Not Reportable Sickle Cells Not Reportable Target Cells Not Reportable Tear Drop Cells Not Reportable Ovalocytes Not Reportable Helmet Cells Not Reportable Stern-[place]um[place] Bodies Not Reportable [place] Rings Not Reportable Genesis Cells Not Reportable Bite Cells Not Reportable Crenated Cell Not Reportable Elliptocytes Not Reportable Acanthocytes (Spur) Not Reportable Rouleaux Not Reportable Hemoglobin C Crystals Not Reportable Schistocytes Not Reportable Malaria parasites Not Reportable Hayes Bodies Not Reportable Hem Pathologist Commnt No Sodium 126 L (137-145) mmol/L Potassium 4.7 (3.6-5.0) mmol/L Chloride 85.6 L (98-107) mmol/L Carbon Dioxide 27 (22-30) mmol/L Anion Gap 18 mmol/L BUN 10 (9-20) mg/dL Creatinine 1.0 (0.8-1.3) mg/dL Estimated GFR > 60 ml/min BUN/Creatinine Ratio 10 % Glucose 99 (75-100) mg/dL Calcium 10.6 H (8.4-10.2) mg/dL Total Bilirubin 0.80 (0.1-1.2) mg/dL AST 66 H (5-40) units/L ALT 68 H (7-56) units/L Alkaline Phosphatase 63 (35-129) units/L Total Protein 7.9 (6.3-8.2) g/dL Albumin 4.9 (3.9-5) g/dL Albumin/Globulin Ratio 1.6 % Lipase 14 (13-60) units/L Urine Color (Yellow) Urine Turbidity (Clear) Urine pH (5.0-7.0) Ur Specific [place] (1.003-1.030) Urine Protein (Negative) mg/dL Urine Glucose (UA) (Negative) mg/dL Urine Ketones (Negative) mg/dL Urine Blood (Negative) Urine Nitrite (Negative) Urine Bilirubin (Negative) Urine Urobilinogen (<2.0) mg/dL Ur Leukocyte Esterase (Negative) Urine WBC (Auto) (0.0-6.0) /HPF Urine RBC (Auto) (0.0-6.0) /HPF U Epithel Cells (Auto) (0-13.0) /HPF 05/15/21 05/15/21 Range/Units 14:26 Unknown WBC (4.5-11.0) K/mm3 RBC (3.65-5.03) M/mm3 Hgb (11.8-15.2) gm/dl Hct (35.5-45.6) % MCV (84-94) fl MCH (28-32) pg MCHC (32-34) % RDW (13.2-15.2) % Plt Count (140-440) K/mm3 [place] % (Auto) Add Manual Diff Total Counted Seg Neuts % (Manual) (40.0-70.0) % Lymphocytes % (Manual) (13.4-35.0) % Monocytes % (Manual) (0.0-7.3) % Myelocytes % % Nucleated RBC % Seg Neutrophils # Man (1.8-7.7) K/mm3 Band Neutrophils # K/mm3 Lymphocytes # (Manual) (1.2-5.4) K/mm3 Abs React Lymphs (Man) K/mm3 Monocytes # (Manual) (0.0-0.8) K/mm3 Eosinophils # (Manual) (0.0-0.4) K/mm3 Basophils # (Manual) (0.0-0.1) K/mm3 Metamyelocytes # K/mm3 Myelocytes # K/mm3 Promyelocytes # K/mm3 Blast Cells # K/mm3 WBC Morphology Hypersegmented Neuts Hyposegmented Neuts Hypogranular Neuts Smudge Cells Toxic Granulation Toxic Vacuolation Dohle Bodies Pelger-Huet Anomaly Sylvain Rods Platelet Estimate Clumped Platelets Plt Clumps, EDTA Large Platelets Giant Platelets Platelet Satelliting Plt Morphology Comment RBC Morphology Dimorphic RBCs Polychromasia Hypochromasia Poikilocytosis Anisocytosis Microcytosis Macrocytosis Spherocytes Pappenheimer Bodies Sickle Cells Target Cells Tear Drop Cells Ovalocytes Helmet Cells Stern-[place]um[place] Bodies [place] Rings Genesis Cells Bite Cells Crenated Cell Elliptocytes Acanthocytes (Spur) Rouleaux Hemoglobin C Crystals Schistocytes Malaria parasites Hayes Bodies Hem Pathologist Commnt Sodium 131 L (137-145) mmol/L Potassium 4.4 (3.6-5.0) mmol/L Chloride 91.7 L (98-107) mmol/L Carbon Dioxide 22 (22-30) mmol/L Anion Gap 22 mmol/L BUN 10 (9-20) mg/dL Creatinine 1.0 (0.8-1.3) mg/dL Estimated GFR > 60 ml/min BUN/Creatinine Ratio 10 % Glucose 97 (75-100) mg/dL Calcium 9.5 (8.4-10.2) mg/dL Total Bilirubin (0.1-1.2) mg/dL AST (5-40) units/L ALT (7-56) units/L Alkaline Phosphatase (35-129) units/L Total Protein (6.3-8.2) g/dL Albumin (3.9-5) g/dL Albumin/Globulin Ratio % Lipase (13-60) units/L Urine Color Straw (Yellow) Urine Turbidity Clear (Clear) Urine pH 5.0 (5.0-7.0) Ur Specific [place] 1.006 (1.003-1.030) Urine Protein <15 mg/dl (Negative) mg/dL Urine Glucose (UA) Neg (Negative) mg/dL Urine Ketones Neg (Negative) mg/dL Urine Blood Neg (Negative) Urine Nitrite Neg (Negative) Urine Bilirubin Neg (Negative) Urine Urobilinogen < 2.0 (<2.0) mg/dL Ur Leukocyte Esterase Neg (Negative) Urine WBC (Auto) 1.0 (0.0-6.0) /HPF Urine RBC (Auto) 1.0 (0.0-6.0) /HPF U Epithel Cells (Auto) < 1.0 (0-13.0) /HPF - EKG Data -: EKG Interpreted by Me EKG shows normal: sinus rhythm, axis (Left axis deviation), intervals, QRS complexes (Left anterior fascicular block), ST-T waves Rate: normal - EKG Data When compared to previous EKG there are: previous EKG unavailable Interpretation: other (Sinus rhythm at 77 bpm, left axis deviation, normal intervals, left anterior fascicular block. No ST elevation MO.) - Radiology Data Radiology results: report reviewed, image reviewed interpreted by me: Chest x-ray does not show any acute process. There are no pleural effusions, obvious pneumonia and there is no pneumothorax. CT ABDOMEN AND PELVIS WITH CONTRAST INDICATION / CLINICAL INFORMATION: Abdominal pain x1 week. Hernia.. TECHNIQUE: Axial CT images were obtained through the abdomen and pelvis after Omnipaque 350, [address] scans at this location are performed using CT dose reduction for ALARA by means of automated exposure control. COMPARISON: None available. FINDINGS: LOWER CHEST: Mild /moderate basilar interstitial disease. LIVER: Diffuse fatty infiltration. GALLBLADDER: No significant abnormality. BILE DUCTS: No significant abnormality. PANCREAS: No significant abnormality. SPLEEN: No significant abnormality. ADRENALS: Mildly heterogeneous 3.1 cm left adrenal lesion. RIGHT KIDNEY / URETER: No significant abnormality. LEFT KIDNEY / URETER: Low density renal lesions are likely cysts. STOMACH / SMALL BOWEL: No significant abnormality. COLON: Postsurgical change noted. APPENDIX: Nonvisualized. PERITONEUM: No free fluid. No free air. No fluid collection. LYMPH NODES: No significant adenopathy. VASCULAR STRUCTURES: Atherosclerotic vascular calcification. URINARY BLADDER: No significant abnormality. REPRODUCTIVE ORGANS: No significant abnormality. ADDITIONAL FINDINGS: Diastases of the rectus muscles with eventration of the anterior abdominal. No discrete hernia. SKELETAL SYSTEM: No significant abnormality. IMPRESSION: 1. Negative for obstruction or localized inflammation. 2. Fatty liver. 3. Mildly heterogeneous left adrenal lesion. 4. Low-density splenic lesion. 5. Fatty liver. 6. Diastases of the rectus muscles with eventration of the anterior abdominal wall. - Medical Decision Making This patient presents to the emergency department with a complaint of abdominal pain, nausea and vomiting. The patient's abdomen is soft and there is no reproducible abdominal tenderness to palpation. It is difficult to assess any distention as he has been obese habitus. There does appear to be some ventral hernia. Patient's labs are mostly unremarkable except for hyponatremia with a sodium level of 126, as well as some slightly elevated transaminases. CT scan of the abdomen and pelvis with IV contrast did not show any signs of in flammation or obstruction. He has fatty liver disease, a left adrenal lesion, and diastases rectus. Patient was given 1.5 L of IV fluid and his blood work was rechecked. The sodium level went up to 131. Patient was given antiemetics and analgesia with improvement. Patient was able to pass an oral challenge. The patient appears safe for discharge home at this time. He has been given outpatient referral for primary care and gastroenterology. We discussed staying away from alcohol and Tylenol/acetaminophen secondary to the elevated liver enzymes. He will return to the emergency department with any worsening of symptoms or with any acute distress. Critical Care Time: No Critical care attestation.: If time is entered above; I have spent that time in minutes in the direct care of this critically ill patient, excluding procedure time. ED Disposition Clinical Impression: Hyponatremia, Rectus diastasis, Fatty liver Abdominal pain Qualifiers: Abdominal location: generalized Qualified Code(s): R10.84 - Generalized a bdominal pain Nausea & vomiting Qualifiers: Vomiting type: unspecified Vomiting Intractability: non-intractable Qualified Code(s): R11.2 - Nausea with vomiting, unspecified Disposition: - TO HOME OR SELFCARE Is pt being admited?: No Condition: Stable Instructions: Abdominal Pain, Adult, Diastasis Recti, Nausea and Vomiting, Adult, Fatty Liver Disease Additional Instructions: Please follow-up with a primary care physician in the next few days. I have given you a referral for [facility] to follow-up regarding your abdominal pains, fatty liver disease, and elevated liver enzymes. Because of the elevated liver enzymes, please avoid any alcohol intake or use of Tylenol/acetaminophen. Return to the emergency department with any worsening of your symptoms, new or concerning symptoms not addressed during this current emergency department visit, or with any acute distress. Prescriptions: Dicyclomine [Bentyl] 10 mg PO QID #11 ml Ondansetron [Zofran Odt] 4 mg PO Q8HR PRN #15 tab.rapdis PRN Reason: Nausea Referrals: [facility] [Provider Group] - 3-5 Days PRIMARY CARE, [Primary Care Provider] - 3-5 Days Time of Disposition: 18:07
--- NOTE | 2021-05-15 13:30 | XRay Report ---
CHEST 1 VIEW INDICATION / CLINICAL INFORMATION: Shortness of breath. COMPARISON: 06/21/2017 FINDINGS: SUPPORT DEVICES: None. HEART / MEDIASTINUM: No significant abnormality. LUNGS / PLEURA: No significant pulmonary or pleural abnormality.. No pneumothorax. ADDITIONAL FINDINGS: No significant additional findings. IMPRESSION: 1. No acute findings. Signer Name: Jermain Vásquez MD Signed: 05/15/2021 12:38 PM Workstation Name: [id number]
[2021-05-15] MEDS ORDERED: SODIUM CHLORIDE 0.9% 500 ML 500 ML IV ONE (13:32)
--- NOTE | 2021-05-15 14:43 | Cat Scan Report ---
CT ABDOMEN AND PELVIS WITH CONTRAST INDICATION / CLINICAL INFORMATION: Abdominal pain x1 week. Hernia.. TECHNIQUE: Axial CT images were obtained through the abdomen and pelvis after Omnipaque 350, 100 cc I V contrast. All CT scans at this location are performed using CT dose reduction for ALARA by means o f automated exposure control. COMPARISON: None available. FINDINGS: LOWER CHEST: Mild/moderate basilar interstitial disease. LIVER: Diffuse fatty infiltration. GALLBLADDER: No significant abnormality. BILE DUCTS: No significant abnormality. PANCREAS: No significant abnormality. SPLEEN: No significant abnormality. ADRENALS: Mildly heterogeneous 3.1 cm left adrenal lesion. RIGHT KIDNEY / URETER: No significant abnormality. LEFT KIDNEY / URETER: Low density renal lesions are likely cysts. STOMACH / SMALL BOWEL: No significant abnormality. COLON: Postsurgical change noted. APPENDIX: Nonvisualized. PERITONEUM: No free fluid. No free air. No fluid collection. LYMPH NODES: No significant adenopathy. VASCULAR STRUCTURES: Atherosclerotic vascular calcification. URINARY BLADDER: No significant abnormality. REPRODUCTIVE ORGANS: No significant abnormality. ADDITIONAL FINDINGS: Diastases of the rectus muscles with eventration of the anterior abdominal. No d iscrete hernia. SKELETAL SYSTEM: No significant abnormality. IMPRESSION: 1. Negative for obstruction or localized inflammation. 2. Fatty liver. 3. Mildly heterogeneous left adrenal lesion. 4. Low-density splenic lesion. 5. Fatty liver. 6. Diastases of the rectus muscles with eventration of the anterior abdominal wall. 7. Given the constellation of findings, follow-up multiphase CT could be performed utilizing adrenal protocol with delayed imaging. Signer Name: Davey Melton MD Signed: 05/15/2021 2:39 PM Workstation Name: [id number] [facility]
[2021-05-15] MEDS ORDERED: oxyCODONE /ACETAMINOPHEN 5-325MG TAB PO ONE (14:57)
[2021-05-15] MEDS ORDERED: hydrALAZINE 20 MG/1 ML INJ IV ONE (14:57)
[2021-05-15 15:10] VITALS: BP 148/85
[2021-05-15 15:19] LABS: Bilirubin,Urine NEG (Negative); Blood,Urine NEG (Negative); Color,Urine Straw (Yellow); Protein,Urine <15 mg/dL mg/dL (Negative); Urobilinogen,Urine < 2.0 mg/dL (<2.0)
[2021-05-15 15:21] LABS: BUN/Creatinine Ratio 10; Blood Urea Nitrogen 10 mg/dL (9-20); Calcium 9.5 mg/dL (8.4-10.2); Hemolysis Index 40
--- NOTE | 2021-05-16 17:49 | Electrocardiograph Report ---
[facility], [place] Test Date: 2021-05-15 Test Time: 12:04:43 Pat Name: DARREN ATWOOD Department: Room: Gender: M Minister Assistant: WOODY : 1955 Requested By: FITO YUAN Order Number: [id number] Reading MD: Daniel Mcmahan Measurements Intervals [place] Rate: 77 P: 52 IN: 182 QRS: -56 QRSD: 101 T: 53 QT: 416 QTc: 472 Interpretive Statements Incomplete analysis due to missing data in precordial lead(s) Sinus rhythm Left anterior fascicular block No previous ECG available for comparison Electronically Signed On 05-16-2021 17:49:37 EDT by Daniel Mcmahan
== END 2021-05-15 16:27 | disposition home or self-care (01) ==
LOC: ED 06:12
DX: K76.0 Fatty (change of) liver, not elsewhere classified (principal); M62.08 Separation of muscle (nontraumatic), other site; E87.1 Hypo-osmolality and hyponatremia; I10 Essential (primary) hypertension; E11.9 Type 2 diabetes mellitus without complications; J44.9 Chronic obstructive pulmonary disease, unspecified
CPT/HCPCS: 36415; 71045; 74177; 80048; 80053; 81001; 83690; 85007; 85025; 93005; 96361; 96374; 96375; 99285; J2270; J2405; J7030; Q9967

== ENCOUNTER 2022-03-28 15:16 | Emergency (ER) | payer MEDICARE ==
[2022-03-28] MEDS ORDERED: SODIUM CHLORIDE 0.9% 1000 ML 1,000 ML IV ONE (16:13)
[2022-03-28] MEDS ORDERED: ONDANSETRON 4 MG/2 ML INJ IV ONE (16:14)
[2022-03-28] MEDS ORDERED: MORPHINE 4 MG/1 ML INJ IV ONE (16:14)
--- NOTE | 2022-03-28 16:40 | XRay Report ---
CHEST 1 VIEW 03/28/2022 4:27 PM INDICATION / CLINICAL INFORMATION: Chest Pain. COMPARISON: 05/15/21 FINDINGS: SUPPORT DEVICES: None. HEART / MEDIASTINUM: Upper normal size and stable. LUNGS / PLEURA: Mild bibasilar atelectasis. No pneumothorax. ADDITIONAL FINDINGS: No significant additional findings. IMPRESSION: 1. No acute findings. Signer Name: Diaz Gr MD Signed: 03/28/2022 4:36 PM Workstation Name: [id number]
[2022-03-28 17:09] LABS: Basophils % (Auto) 0.2 % (0.0-1.8); Hematocrit 28.8 % (35.5-45.6); Hemoglobin 9.9 gm/dl (11.8-15.2); Lymphocytes # (Auto) 0.4 K/mm3 (1.2-5.4); Lymphocytes % (Auto) 5.7 % (13.4-35.0); Mean Corpuscular HGB Conc 35 % (32-34); Mean Corpuscular Volume 107 fl (84-94); Monocytes # (Auto) 0.6 K/mm3 (0.0-0.8); Monocytes % (Auto) 7.6 % (0.0-7.3); Platelet Count 182 K/mm3 (140-440); Red Cell Distribution Width 12.5 % (13.2-15.2)
[2022-03-28 17:28] LABS: Alanine Aminotransferase 67 units/L (7-56); Albumin 4.1 g/dL (3.9-5); BUN/Creatinine Ratio 34; Blood Urea Nitrogen 31 mg/dL (9-20); Calcium 9.9 mg/dL (8.4-10.2); Hemolysis Index 8
[2022-03-28 17:30] LABS: INR 1.02 (0.87-1.13)
[2022-03-28 18:26] LABS: C-Reactive Protein < 0.30 mg/dL (0.00-1.30)
--- NOTE | 2022-03-28 18:40 | Cat Scan Report ---
CT ABDOMEN AND PELVIS WITH CONTRAST INDICATION / CLINICAL INFORMATION: Pt complains of abdominal pain with N/V x 2 days. TECHNIQUE: Axial CT images were obtained through the abdomen and pelvis after 100 mL Omnipaque [address] scans at this location are performed using CT dose reduction for ALARA by means of automated exposure control. COMPARISON: CT dated 05/15/21 FINDINGS: LOWER CHEST: No significant abnormality. LIVER: Diffusely hypodense and enlarged characteristic of fatty infiltration. GALLBLADDER: No significant abnormality. BILE DUCTS: No significant abnormality. PANCREAS: No significant abnormality. SPLEEN: Subtle splenic hypodense lesion is stable. ADRENALS: 3.1 cm solid, enhancing left adrenal nodule is unchanged. Right adrenal appears normal. RIGHT KIDNEY / URETER: No significant abnormality. LEFT KIDNEY / URETER: Simple cyst is unchanged. No significant abnormality. STOMACH / SMALL BOWEL: No significant abnormality. COLON: Partial right hemicolectomy with ileocolonic anastomosis is unchanged. No acute abnormality. APPENDIX: Appendectomy. PERITONEUM: No free fluid. No free air. No fluid collection. LYMPH NODES: No significant adenopathy. AORTA / ARTERIES: Mild atherosclerotic calcification without acute abnormality. IVC / VEINS: No significant abnormality. URINARY BLADDER: No significant abnormality. REPRODUCTIVE ORGANS: No significant abnormality. ADDITIONAL FINDINGS: Rectus abdominis diastasis, unchanged. SKELETAL SYSTEM: Curvilinear sclerosis in bilateral femoral heads characteristic of early stage osteo necrosis/AVN. No change since prior study. IMPRESSION: 1. Rectus abdominis diastasis but no small bowel obstruction. 2. No inflammatory process. 3. Hepatomegaly with hepatic steatosis, unchanged. 4. Stable left adrenal nodule. 5. Bilateral femoral head AVN, early stage. No change. Signer Name: Diaz Gr MD Signed: 03/28/2022 6:36 PM Workstation Name: [id number]
[2022-03-28] MEDS ORDERED: ALBUTEROL 2.5 MG/3 ML NEBU IH ONE (19:08)
[2022-03-28] MEDS ORDERED: LORazepam 2 MG/ML VIAL IV ONE (19:08)
--- NOTE | 2022-03-28 19:12 | Emergency Department Report ---
ED Abdominal Pain HPI - General Chief Complaint: Abdominal Pain Stated Complaint: N/V/D/CHEST PAIN/VALERIO Time Seen by Provider: 03/28/22 16:11 Source: EMS Mode of arrival: Ambulatory Limitations: No Limitations - History of Present Illness Initial Comments: n/v, abdominal pain, chest pain x 2 day MD Complaint: abdominal pain -: days(s) Location: diffuse Severity scale (0 -10): 7 Quality: aching Consistency: intermittent Associated Symptoms: nausea, vomiting - Related Data Home Medications Medication Instructions Recorded Confirmed Last Taken Amlodipine Besylate [Norvasc] 5 mg PO DAILY 06/21/17 06/21/17 Unknown Ibuprofen [Motrin 800 MG tab] 800 mg PO TIDWM 06/21/17 06/21/17 Unknown Losartan [Cozaar] 50 mg PO QDAY 06/21/17 06/21/17 Unknown Metoprolol [Lopressor TAB] 50 mg PO BID 06/21/17 06/21/17 Unknown Pantoprazole [Protonix TAB] 40 mg PO QDAC 06/21/17 06/21/17 Unknown Previous Rx's Medication Instructions Recorded Last Taken Type Azithromycin [Zithromax TAB] 500 mg PO QDAY #3 tablet 06/27/17 Unknown Rx Loratadine (Nf) [Claritin (Nf)] 10 mg PO QDAY #7 tablet 06/27/17 Unknown Rx metFORMIN [Glucophage] 500 mg PO BID #60 tablet 06/27/17 Unknown Rx predniSONE [Deltasone] 40 mg PO QDAY #7 tablet 06/27/17 Unknown Rx Dicyclomine [Bentyl] 10 mg PO QID #11 ml 05/15/21 Unknown Rx Ondansetron [Zofran Odt] 4 mg PO Q8HR PRN #15 tab.rapdis 05/15/21 Unknown Rx Allergies Allergy/AdvReac Type Severity Reaction Status Date / Time No Known Allergies Allergy Verified 03/28/22 15:51 ED Review of Systems ROS: Stated complaint: N/V/D/CHEST PAIN/VALERIO Other details as noted in HPI Constitutional: denies: chills, fever Eyes: denies: eye pain, eye discharge, vision change ENT: denies: ear pain, throat pain Respiratory: denies: cough, shortness of breath, wheezing Cardiovascular: denies: chest pain, palpitations Endocrine: no symptoms reported Gastrointestinal: denies: abdominal pain, nausea, diarrhea Genitourinary: denies: urgency, dysuria Musculoskeletal: denies: back pain, joint swelling, arthralgia Skin: denies: rash, lesions Neurological: denies: headache, weakness, paresthesias Psychiatric: denies: anxiety, depression Hematological/Lymphatic: denies: easy bleeding, easy bruising ED Past Medical Hx - Past Medical History Previous Medical History?: Yes Hx Hypertension: Yes Hx Diabetes: Yes Hx COPD: Yes Additional medical history: pancreatitis, back pain - Surgical History Additional Surgical History: abdominal sx - Social History Smoking Status: Never Smoker Substance Use Type: Alcohol - Medications Home Medications: Home Medications Medication Instructions Recorded Confirmed Last Taken Type Amlodipine Besylate [Norvasc] 5 mg PO DAILY 06/21/17 06/21/17 Unknown History Ibuprofen [Motrin 800 MG tab] 800 mg PO TIDWM 06/21/17 06/21/17 Unknown History Losartan [Cozaar] 50 mg PO QDAY 06/21/17 06/21/17 Unknown History Metoprolol [Lopressor TAB] 50 mg PO BID 06/21/17 06/21/17 Unknown History Pantoprazole [Protonix TAB] 40 mg PO QDAC 06/21/17 06/21/17 Unknown History Azithromycin [Zithromax TAB] 500 mg PO QDAY #3 tablet 06/27/17 Unknown Rx Loratadine (Nf) [Claritin (Nf)] 10 mg PO QDAY #7 tablet 06/27/17 Unknown Rx metFORMIN [Glucophage] 500 mg PO BID #60 tablet 06/27/17 Unknown Rx predniSONE [Deltasone] 40 mg PO QDAY #7 tablet 06/27/17 Unknown Rx Dicyclomine [Bentyl] 10 mg PO QID #11 ml 05/15/21 Unknown Rx Ondansetron [Zofran Odt] 4 mg PO Q8HR PRN #15 tab.rapdis 05/15/21 Unknown Rx ED Physical Exam - General Limitations: No Limitations General appearance: alert, other (actively heaving ) - Head Head exam: Present: atraumatic, normocephalic - Eye Eye exam: Present: normal appearance - ENT ENT exam: Present: mucous membranes moist - Neck Neck exam: Present: normal inspection - Respiratory Respiratory exam: Present: normal lung sounds bilaterally. Absent: respiratory distress - Cardiovascular Cardiovascular Exam: Present: regular rate, normal rhythm. Absent: systolic murmur, diastolic murmur, rubs, gallop - GI/Abdominal GI/Abdominal exam: Present: distended, normal bowel sounds, mass, hernia - Rectal Rectal exam: Present: deferred - Extremities Exam Extremities exam: Present: normal inspection - Back Exam Back exam: Present: normal inspection - Neurological Exam Neurological exam: Present: alert, oriented X3 - Psychiatric Psychiatric exam: Present: normal affect, normal mood - Skin Skin exam: Present: warm, dry, intact, normal color. Absent: rash ED Course Vital Signs 03/28/22 03/28/22 15:46 16:06 Temperature 98.6 F Pulse Rate 99 H Respiratory 16 Rate Blood Pressure 135/79 [Left] O2 Sat by Pulse 100 93 Oximetry ED Medical Decision Making - Lab Data Result diagrams: 03/28/22 16:39 03/28/22 16:39 - Radiology Data Radiology results: report reviewed, image reviewed - Medical Decision Making work up showed : hyponatyremia : chornic , most likely from chronic drinking CT scan of hernia and abd diastesis, old no SBO pain meds given Critical care attestation.: If time is entered above; I have spent that time in minutes in the direct care of this critically ill patient, excluding procedure time. ED Disposition Clinical Impression: COPD (chronic obstructive pulmonary disease), Rectus diastasis of lower abdomen, Hernia of abdominal wall, Alcoholism, Hyponatremia Disposition: 01 HOME / SELF CARE / HOMELESS Is pt being admited?: No Does the pt Need Aspirin: No Condition: Stable Instructions: Chronic Obstructive Pulmonary Disease (ED), Ventral Hernia, Alcohol Abuse and Dependence Information, Adult Referrals: YOVANI CRAWLEY MD [Primary Care Provider] - 3-5 Days
[2022-03-28 19:45] VITALS: BP 159/85
[2022-03-28 20:11] LABS: Bilirubin,Urine NEG (Negative); Blood,Urine NEG (Negative); Color,Urine Yellow (Yellow); Protein,Urine <15 mg/dL mg/dL (Negative); Urobilinogen,Urine < 2.0 mg/dL (<2.0)
[2022-03-28 20:19] LABS: Amphetamine Screen,Urine Negative; Benzodiazepines Screen,Urine Negative; Cannabinoid Screen,Urine Negative; Cocaine Screen,Urine Negative; Methadone Screen,Urine Negative; Opiate Screen,Urine Negative
== END 2022-03-28 23:39 | disposition home or self-care (01) ==
LOC: ED 15:16
DX: J44.9 Chronic obstructive pulmonary disease, unspecified (principal); M62.08 Separation of muscle (nontraumatic), other site; K43.9 Ventral hernia without obstruction or gangrene; F10.20 Alcohol dependence, uncomplicated; E87.1 Hypo-osmolality and hyponatremia; I10 Essential (primary) hypertension; E11.9 Type 2 diabetes mellitus without complications
CPT/HCPCS: 36415; 71045; 74177; 80053; 80307; 81001; 82550; 83690; 83880; 84484; 85025; 85610; 86140; 96361; 96374; 96375; 99285; J2060; J2270; J2405; J7030; Q9967